=== PATIENT | male | born 1950 | race Two or more races ===

== ENCOUNTER 2017-09-23 14:09 | Outpatient (RCR) | payer MEDICARE, OTHER | END 2017-10-23 | disposition home or self-care (01) | LOC: WCC 14:09 | DX: M86.172 Other acute osteomyelitis, left ankle and foot (principal); E11.43 Type 2 diabetes mellitus with diabetic autonomic (poly)neuropathy; E11.51 Type 2 diabetes mellitus with diabetic peripheral angiopathy without gangrene; E11.621 Type 2 diabetes mellitus with foot ulcer; N18.6 End stage renal disease; I12.0 Hypertensive chronic kidney disease with stage 5 chronic kidney disease or end stage renal disease; E11.22 Type 2 diabetes mellitus with diabetic chronic kidney disease; Z86.73 Personal history of transient ischemic attack (TIA), and cerebral infarction without residual deficits; Z89.411 Acquired absence of right great toe | CPT/HCPCS: 15275; Q4132; Q4133 ==

== ENCOUNTER 2017-11-25 13:44 | Outpatient (RCR) | payer MEDICARE, OTHER | END 2017-12-23 | disposition home or self-care (01) | LOC: WCC 13:44 | DX: M86.172 Other acute osteomyelitis, left ankle and foot (principal); E11.43 Type 2 diabetes mellitus with diabetic autonomic (poly)neuropathy; E11.51 Type 2 diabetes mellitus with diabetic peripheral angiopathy without gangrene; E11.621 Type 2 diabetes mellitus with foot ulcer; N18.6 End stage renal disease; L03.116 Cellulitis of left lower limb; Z89.411 Acquired absence of right great toe; I10 Essential (primary) hypertension; Z86.73 Personal history of transient ischemic attack (TIA), and cerebral infarction without residual deficits | CPT/HCPCS: G0463 ==

== ENCOUNTER 2017-12-30 12:45 | Outpatient (RCR) | payer MEDICARE, OTHER | END 2018-01-23 | disposition home or self-care (01) | LOC: WCC 12:45 | DX: M86.172 Other acute osteomyelitis, left ankle and foot (principal); E11.43 Type 2 diabetes mellitus with diabetic autonomic (poly)neuropathy; E11.51 Type 2 diabetes mellitus with diabetic peripheral angiopathy without gangrene; E11.621 Type 2 diabetes mellitus with foot ulcer; N18.6 End stage renal disease; L03.116 Cellulitis of left lower limb; L97.526 Non-pressure chronic ulcer of other part of left foot with bone involvement without evidence of necrosis; E11.42 Type 2 diabetes mellitus with diabetic polyneuropathy; E11.622 Type 2 diabetes mellitus with other skin ulcer; I70.245 Atherosclerosis of native arteries of left leg with ulceration of other part of foot; Z89.412 Acquired absence of left great toe; Z89.411 Acquired absence of right great toe; I10 Essential (primary) hypertension; Z86.73 Personal history of transient ischemic attack (TIA), and cerebral infarction without residual deficits; E11.22 Type 2 diabetes mellitus with diabetic chronic kidney disease; I12.0 Hypertensive chronic kidney disease with stage 5 chronic kidney disease or end stage renal disease | CPT/HCPCS: 11043; 97605; G0463 ==

== ENCOUNTER 2018-01-27 13:30 | Outpatient (RCR) | payer MEDICARE, OTHER ==
[2018-02-14] MEDS ORDERED: ASPIRIN EC81 MG ORAL (11:46)
[2018-02-14] MEDS ORDERED: HEPARIN SO5000 UNIT2 SUBQ (11:46)
[2018-02-14] MEDS ORDERED: Vanco pharmacy to dose MISC (11:46)
[2018-02-14] MEDS ORDERED: LOPRESSOR25 M1 ORAL (11:46)
[2018-02-14] MEDS ORDERED: D50w IV (11:46)
[2018-02-14] MEDS ORDERED: NORVASC5 MG ORAL (11:46)
[2018-02-14] MEDS ORDERED: NOVOLOG100 UNITS1 SUBQ (11:46)
[2018-02-14] MEDS ORDERED: MIRALAX17 GM ORAL (11:46)
[2018-02-14] MEDS ORDERED: ACETAMINOPHEN325 M1 ORAL (11:46)
[2018-02-14] MEDS ORDERED: DUONEB 0.5-3(2.53 ML HHN (11:46)
== END 2018-02-22 | disposition still patient (30) ==
LOC: WCC 13:30
DX: M86.172 Other acute osteomyelitis, left ankle and foot (principal); E11.43 Type 2 diabetes mellitus with diabetic autonomic (poly)neuropathy; E11.51 Type 2 diabetes mellitus with diabetic peripheral angiopathy without gangrene; E11.621 Type 2 diabetes mellitus with foot ulcer; N18.6 End stage renal disease; L03.116 Cellulitis of left lower limb; I12.0 Hypertensive chronic kidney disease with stage 5 chronic kidney disease or end stage renal disease; E11.22 Type 2 diabetes mellitus with diabetic chronic kidney disease; Z86.73 Personal history of transient ischemic attack (TIA), and cerebral infarction without residual deficits; Z89.412 Acquired absence of left great toe; Z89.411 Acquired absence of right great toe
CPT/HCPCS: 11043; 97605

== ENCOUNTER 2018-02-10 11:42 | Outpatient (CLI) | payer MEDICARE, OTHER ==
--- NOTE | 2018-02-10 16:22 | Diagnostic Imaging Report ---
Indication: History of great toe amputation with open wound Technique: Sagittal, axial, and coronal T1 fast spin echo and fast spin echo STIR images of the forefoot Comparison: none Findings: Patient is status post amputation of the first toe at the level of the metatarsophalangeal joint. There is a open wound and possible exposure of the first metatarsal head as no soft tissue is seen covering the first metatarsal head. There is markedly increased STIR signal and markedly decreased T1 signal involving the first metatarsal head and distal shaft. There is absence of the cortical signal void, suggesting cortical destruction Markedly abnormal STIR and T1 signal is also seen in the second proximal phalanx. Abnormal STIR and very subtle decreased T1 signal is seen in the second metatarsal head. The middle and distal phalanges appear unremarkable. Abnormal STIR signal is seen at the very tip of the head of the third proximal phalanx. There is probably abnormal decreased T1 signal in the same area. The middle and distal phalanges appear The third metatarsal head demonstrates some increased STIR signal, subtle decreased T1 signal. No abnormal marrow signal is seen in the fourth or fifth digits. The visualized bones of the midfoot appear unremarkable. Considerable soft tissue edema is seen in the area of the open wound at the level of the amputation. There is also diffuse edema of the musculotendinous compartments on the plantar side and of the subcutaneous fat and musculotendinous compartments on the dorsum of the foot. No definite focal drainable fluid collection demonstrated. Impression: Abnormal STIR and T1 signal involving the head and neck of the first metatarsal, consistent with osteomyelitis. There is no overlying soft tissue open wound and it is quite likely at the bone is exposed Abnormal STIR and T1 signal within the second proximal phalanx and second metatarsal head, suspicious for osteomyelitis Small focus of abnormal STIR and T1 signal in the head of the third proximal phalanx suspicious for a small focus of osteomyelitis. Equivocal signal abnormality in the third metatarsal head, could be reactive or indicate early osteomyelitis changes Extensive soft tissue edema, described. This could be vasculogenic or indicate soft tissue cellulitis. No focal drainable abscess collection demonstrated. Findings discussed by phone with Dr. Cornejo at the time of interpretation
== END 2018-02-10 13:42 | disposition home or self-care (01) ==
LOC: RAD 11:42
DX: M86.8X7 Other osteomyelitis, ankle and foot (principal)

== ENCOUNTER 2018-02-11 13:47 | Inpatient (IN) | payer MEDICARE, OTHER ==
[~2018-02-11] VITALS: Ht 167.6 cm; Wt 65.3 kg
[2018-02-11 14:39] LABS: BASOPHILS % (AUTO) 0.7 % (0.0-2.0); EOSINOPHILS % (AUTO) 2.2 % (0.0-3.0); HEMATOCRIT 33.5 % (42.0-52.0); HEMOGLOBIN 10.9 G/DL (14.2-18.0); MEAN CORPUSCULAR VOLUME 85 FL (80-99); MONOCYTES % (AUTO) 6.6 % (1.0-10.0); NEUTROPHILS % (AUTO) 74.4 % (45.0-75.0); PLATELET COUNT 193 K/UL (150-450); RED BLOOD COUNT 3.96 M/UL (4.70-6.10); RED CELL DISTRIBUTION WIDTH 16.7 % (11.6-14.8); WHITE BLOOD COUNT 9.1 K/UL (4.8-10.8)
[2018-02-11 14:57] VITALS: BP 110/58
[2018-02-11 15:00] LABS: ANION GAP 5 mmol/L (5-15); BLOOD UREA NITROGEN 34 mg/dL (7-18); CALCIUM 8.8 MG/DL (8.5-10.1); CARBON DIOXIDE 34 MMOL/L (21-32); CHLORIDE 97 MMOL/L (98-107); CREATININE 3.2 MG/DL (0.55-1.30); POTASSIUM 3.6 MMOL/L (3.5-5.1); SODIUM 136 MMOL/L (136-145)
[2018-02-11] MEDS ORDERED: Albuterol/Ipratropium 3ml neb HHN PRN (15:00)
[2018-02-11] MEDS ORDERED: Morphine Sulfate 2mg/ml Inj IVP PRN (15:00)
--- NOTE | 2018-02-11 15:00 | History and Physical ---
History of Present Illness General Date patient seen: Feb 11, 2018 Reason for Hospitalization: Lower Extremity Injury Present Illness HPI 67-year-old male with hx of ESRF, DM, Chronic osteomyelitis presented to ED for evaluation of left foot infection. Referred from wound care clinic here at [facility] [place] He had this wound for several months now. Denies any fevers or chills. There is a wound VAC on the left foot. No other aggravating relieving factors. Denies any other associated symptoms Allergies: Coded Allergies: No Known Allergies (Unverified , 02/11/18) Patient History Healthcare decision maker Resuscitation status Advanced Directive on File Past Medical/Surgical History Past Medical/Surgical History: (1) ESRD (end stage renal disease) (2) Non-healing ulcer of left foot Review of Systems All Other Systems: negative except mentioned in HPI Physical Exam General Appearance: WD/WN Lines, tubes and drains: peripheral HEENT: atraumatic Neck: non-tender, abnormal alignment Respiratory/Chest: chest wall non-tender, lungs clear Cardiovascular/Chest: normal peripheral pulses, normal rate, regularly irregular Last 24 Hour Vital Signs Date Time Temp Pulse Resp B/P (MAP) Pulse Ox O2 Delivery O2 Flow Rate FiO2 02/11/18 14:57 98.2 86 22 110/58 94 Room Air 98.2 02/11/18 13:57 98.3 95 22 138/66 94 Room Air 98.2 Laboratory Tests Test 02/11/18 14:25 White Blood Count 9.1 K/UL (4.8-10.8) Red Blood Count 3.96 M/UL (4.70-6.10) L Hemoglobin 10.9 G/DL (14.2-18.0) L Hematocrit 33.5 % (42.0-52.0) L Mean Corpuscular Volume 85 FL (80-99) Mean Corpuscular Hemoglobin 27.6 PG (27.0-31.0) Mean Corpuscular Hemoglobin Concent 32.6 G/DL (32.0-36.0) Red Cell Distribution Width 16.7 % (11.6-14.8) H Platelet Count 193 K/UL (150-450) Mean Platelet Volume 6.6 FL (6.5-10.1) Neutrophils (%) (Auto) 74.4 % (45.0-75.0) Lymphocytes (%) (Auto) 16.0 % (20.0-45.0) L Monocytes (%) (Auto) 6.6 % (1.0-10.0) Eosinophils (%) (Auto) 2.2 % (0.0-3.0) Basophils (%) (Auto) 0.7 % (0.0-2.0) Sodium Level Pending Potassium Level Pending Chloride Level Pending Carbon Dioxide Level Pending Blood Urea Nitrogen Pending Creatinine Pending Estimat Glomerular Filtration Rate Pending Glucose Level Pending Lactic Acid Level Pending Calcium Level Pending Total Bilirubin Pending Aspartate Amino Transf (AST/SGOT) Pending Alanine Aminotransferase (ALT/SGPT) Pending Alkaline Phosphatase Pending Total Protein Pending Albumin Pending Globulin Pending Height (Feet): 5 Height (Inches): 7.00 Weight (Pounds): 120 Assessment/Plan Problem List: (1) Cellulitis ICD Codes: L03.90 - Cellulitis, unspecified SNOMED: 341569123 (2) Osteomyelitis ICD Codes: M86.9 - Osteomyelitis, unspecified SNOMED: [id number] Qualifiers: Qualified Codes: M86.9 - Osteomyelitis, unspecified (3) ESRD (end stage renal disease) ICD Codes: N18.6 - End stage renal disease SNOMED: 09577426 (4) Non-healing ulcer of left foot ICD Codes: L97.529 - Non-pressure chronic ulcer of other part of left foot with unspecified severity SNOMED: 731569628 Qualifiers: Qualified Codes: L97.529 - Non-pressure chronic ulcer of other part of left foot with unspecified severity Assessment/Plan wound care IV abx check cultures sliding scale diabetic diet Melissa Hector MD Feb 11, 2018 15:00
--- NOTE | 2018-02-11 15:00 | Diagnostic Imaging Report ---
Indication: Chest pain Technique: One view of the chest Comparison: none Findings: Lungs and pleural spaces are clear. Heart size is normal Impression: No acute process
[2018-02-11 15:03] LABS: ALANINE AMINOTRANSFERASE 58 U/L (12-78); ALBUMIN 2.7 G/DL (3.4-5.0); ALBUMIN/GLOBULIN RATIO 0.5 (1.0-2.7); ALKALINE PHOSPHATASE 117 U/L (46-116); ASPARTATE AMINO TRANSFERASE 41 U/L (15-37); BILIRUBIN,TOTAL 0.5 MG/DL (0.2-1.0)
--- NOTE | 2018-02-11 15:15 | Emergency Room Report ---
History of Present Illness General Chief Complaint: Lower Extremity Injury Source: Patient Present Illness HPI 67-year-old male presents ED for evaluation of left foot infection. Referred from [place] care clinic [place] [facility] [place]ound care clinic states that patient is being treated for osteomyelitis and a wound on his left foot which is not healing. Has had this wound for several months now. Currently being managed by Dr. Cornejo (podiatry). Patient denies any pain. Denies any fevers or chills. There is a wound VAC on the left foot. No other aggravating relieving factors. Denies any other associated symptoms Allergies: Coded Allergies: No Known Allergies (Unverified , 02/11/18) Patient History Past Medical History: DM, HTN, renal disease, dialysis Past Surgical History: none Pertinent Family History: none Social History: Denies: smoking, alcohol use, drug use Immunizations: UTD Reviewed Nursing Documentation: PMH: Agreed; PSxH: Agreed Nursing Documentation-PMH Past Medical History: No Stated History Hx Hypertension: Yes Hx Diabetes: Yes Hx Dialysis: Yes - MWF Review of Systems All Other Systems: negative except mentioned in HPI Physical Exam Vital Signs Date Time Temp Pulse Resp B/P (MAP) Pulse Ox O2 Delivery O2 Flow Rate FiO2 02/11/18 13:57 98.3 95 22 138/66 94 Room Air 98.2 Sp02 EP Interpretation: reviewed, normal General Appearance: no apparent distress, alert, GCS 15, non-toxic Head: normocephalic, atraumatic Eyes: bilateral eye normal inspection, bilateral eye PERRL ENT: hearing grossly normal, normal pharynx, no angioedema, normal voice Neck: full range of motion, supple/symm/no masses Respiratory: chest non-tender, lungs clear, normal breath sounds, speaking full sentences Cardiovascular #1: regular rate, rhythm, no edema Cardiovascular #2: 2+ carotid (R), 2+ carotid (L), 2+ radial (R), 2+ radial (L) , 2+ dorsalis pedis (R), 2+ dorsalis pedis (L) Gastrointestinal: normal bowel sounds, non tender, soft, non-distended, no guarding, no rebound Rectal: deferred Genitourinary: normal inspection, no CVA tenderness Musculoskeletal: back normal, gait/station normal, normal range of motion, non- tender Neurologic: alert, oriented x3, responsive, motor strength/tone normal, sensory intact, speech normal Psychiatric: judgement/insight normal, memory normal, mood/affect normal, no suicidal/homicidal ideation Reflexes: 3+ bicep (R), 3+ bicep (L), 3+ tricep (R), 3+ tricep (L), 3+ knee (R) , 3+ knee (L) Skin: normal color, warm/dry, well hydrated, other - wound to dorsum L foot. wound vac in place Lymphatic: no adenopathy Medical Decision Making Diagnostic Impression: Primary Impression: ESRD (end stage renal disease) Additional Impressions: Osteomyelitis Qualified Codes: M86.9 - Osteomyelitis, unspecified Non-healing ulcer of left foot Qualified Codes: L97.529 - Non-pressure chronic ulcer of other part of left foot with unspecified severity ER Course Hospital Course 67-year-old male presents to ED with nonhealing ulcer to L foot. h/o osteomyelitis Differential diagnoses include: Cellulitis, DVT, abscess, rash. Clinical course Patient placed on stretcher. After initial history and physical I ordered labs , blood Cx, UA, IVFs, EKG, CXR labs reviewed - no leukocytosis, Hb/Hct stable, BUN/Cr elevated, UA+ bacteria, lactate ok EKG - NSR, no acute ischemic changes interpreted by me CXR - no acute process antibiotics given. Dr Cornejo will take patient to OR tomorrow Case discussed with Dr Hector and he agreed to accept the patient to his service for further care and support Diagnosis - ESRD, osteomyelitis, nonhealing ulcer of left foot Patient admitted to floor in stable condition Labs Test 02/11/18 14:25 02/11/18 15:45 White Blood Count 9.1 K/UL (4.8-10.8) Red Blood Count 3.96 M/UL (4.70-6.10) Hemoglobin 10.9 G/DL (14.2-18.0) Hematocrit 33.5 % (42.0-52.0) Mean Corpuscular Volume 85 FL (80-99) Mean Corpuscular Hemoglobin 27.6 PG (27.0-31.0) Mean Corpuscular Hemoglobin Concent 32.6 G/DL (32.0-36.0) Red Cell Distribution Width 16.7 % (11.6-14.8) Platelet Count 193 K/UL (150-450) Mean Platelet Volume 6.6 FL (6.5-10.1) Neutrophils (%) (Auto) 74.4 % (45.0-75.0) Lymphocytes (%) (Auto) 16.0 % (20.0-45.0) Monocytes (%) (Auto) 6.6 % (1.0-10.0) Eosinophils (%) (Auto) 2.2 % (0.0-3.0) Basophils (%) (Auto) 0.7 % (0.0-2.0) Sodium Level 136 MMOL/L (136-145) Potassium Level 3.6 MMOL/L (3.5-5.1) Chloride Level 97 MMOL/L (98-107) Carbon Dioxide Level 34 MMOL/L (21-32) Anion Gap 5 mmol/L (5-15) Blood Urea Nitrogen 34 mg/dL (7-18) Creatinine 3.2 MG/DL (0.55-1.30) Estimat Glomerular Filtration Rate 19.5 mL/min (>60) Glucose Level 286 MG/DL (74-106) Lactic Acid Level 1.70 mmol/L (0.4-2.0) Calcium Level 8.8 MG/DL (8.5-10.1) Total Bilirubin 0.5 MG/DL (0.2-1.0) Aspartate Amino Transf (AST/SGOT) 41 U/L (15-37) Alanine Aminotransferase (ALT/SGPT) 58 U/L (12-78) Alkaline Phosphatase 117 U/L (46-116) Total Protein 7.8 G/DL (6.4-8.2) Albumin 2.7 G/DL (3.4-5.0) Globulin 5.1 g/dL Albumin/Globulin Ratio 0.5 (1.0-2.7) Urine Color Yellow Urine Appearance Slightly cloudy Urine pH 7 (4.5-8.0) Urine Specific [place] 1.010 (1.005-1.035) Urine Protein 4+ (NEGATIVE) Urine Glucose (UA) 3+ (NEGATIVE) Urine Ketones Negative (NEGATIVE) Urine Blood 1+ (NEGATIVE) Urine Nitrite Negative (NEGATIVE) Urine Bilirubin Negative (NEGATIVE) Urine Urobilinogen Normal MG/DL (0.0-1.0) Urine Leukocyte Esterase 1+ (NEGATIVE) EKG Diagnostic Results Rate: normal Rhythm: NSR ST Segments: no acute changes ASA given to the pt in ED: No Rhythm Strip Diag. Results EP Interpretation: yes Rhythm: NSR, no PVC's, no ectopy Chest X-Ray Diagnostic Results Chest X-Ray Diagnostic Results : Chest X-Ray Ordered: Yes # of Views/Limited/Complete: 1 View Indication: Other - preop EP Interpretation: Yes Interpretation: no consolidation, no effusion, no pneumothorax, no acute cardiopulmonary disease Impression: No acute disease Electronically Signed by: Electronically signed by Dennis Mcdermott MD Last Vital Signs Date Time Temp Pulse Resp B/P (MAP) Pulse Ox O2 Delivery O2 Flow Rate FiO2 02/11/18 14:57 98.2 86 22 110/58 94 Room Air 98.2 Status: improved Disposition: ADMITTED INPATIENT Condition: Serious Referrals: Melissa Hector MD (PCP) Dennis Mcdermott MD Feb 11, 2018 15:15
[2018-02-11] MEDS ORDERED: Vancomycin 1 GM in NS 275 ML IV ONE (15:30)
[2018-02-11 15:52] LABS: APPEARANCE,URINE SLIGHTLY CLOUDY; BILIRUBIN, URINE NEGATIVE (NEGATIVE); GLUCOSE, URINE (UA) 3+ (NEGATIVE); KETONES,URINE NEGATIVE (NEGATIVE); LEUKOCYTE ESTERASE ,URINE 1+ (NEGATIVE); NITRITE,URINE NEGATIVE (NEGATIVE); PH,URINE 7 (4.5-8.0); PROTEIN,URINE 4+ (NEGATIVE); UROBILINOGEN,URINE NORMAL MG/DL (0.0-1.0)
[2018-02-11 15:54] LABS: COLOR,URINE YELLOW
--- NOTE | 2018-02-11 16:10 | Consultation ---
Consult Note Consult Note asked to eval for dialysis karissa 67-year-old male presents ED for evaluation of left foot infection. Referred from wound care clinic here at [facility] [place] Wound care clinic states that patient is being treated for osteomyelitis and a wound on his left foot which is not healing. Has had this wound for several months now. Currently being managed by Dr. Cornejo (podiatry). Patient denies any pain. Denies any fevers or chills. There is a wound VAC on the left foot. No other aggravating relieving factors. Denies any other associated symptoms Allergies: Coded Allergies: No Known Allergies (Unverified , 02/11/18) Past Medical History: DM, HTN, renal disease, dialysis Hx Hypertension: Yes Hx Diabetes: Yes Hx Dialysis: Yes - MWF seen in ER room 8 Had dialysis today Assessment/Plan ESRD (end stage renal disease) Osteomyelitis Non-healing ulcer of left foot Anemia Plan: WOund care- ID & SUrgical eval next HD 02/13 per orders Sanjeev Gray MD Feb 11, 2018 16:10
[2018-02-11 17:02] VITALS: BP 156/82
[2018-02-11] MEDS ORDERED: NovoLOG Insulin Flexpen SUBQ SCH (18:00)
[2018-02-11 18:56] VITALS: BP 163/84
[2018-02-11] MEDS: Heparin 5000 units/ml inj SUBQ SCH (20:41)
[2018-02-11] MEDS: NovoLOG Insulin Flexpen SUBQ SCH (20:50)
[2018-02-11] MEDS ORDERED: Zolpidem 5mg tab ORAL PRN (21:00)
[2018-02-11] MEDS ORDERED: Miralax 17gm pkt ORAL PRN (21:00)
--- NOTE | 2018-02-11 23:31 | Consultation ---
History of Present Illness General Date patient seen: Feb 11, 2018 Time patient seen: 23:24 Chief Complaint: Lower Extremity Injury Present Illness HPI 67 year old male [place] speaking with DM, ESRD, HTN, anemia presents with left big toe ulcer that has a wound vac. He was sent from wound clinic because the ulcer is not healing. He has osteomyelitis. He is planning on having resection on . Cardiology consulted for clearance. No chest pain/SOB/Edema/ orthopnea/fevers/recent illnesses/palpitations. No previous UT/PE/DVT/CVA. Chest x ray clear. BP elevated. Allergies: Coded Allergies: No Known Allergies (Unverified , 02/11/18) Patient History Healthcare decision maker N Resuscitation status Full Code Advanced Directive on File Review of Systems Constitutional: Reports: no symptoms Eye: Reports: no symptoms ENT: Reports: no symptoms Respiratory: Reports: no symptoms Cardiovascular: Reports: no symptoms Gastrointestinal: Reports: no symptoms Genitourinary: Reports: no symptoms Musculoskeletal: Reports: no symptoms Skin: Reports: no symptoms Psychiatric: Reports: no symptoms Endocrine: Reports: no symptoms Hematologic/Lymphatic: Reports: no symptoms Physical Exam General Appearance: no apparent distress, alert Lines, tubes and drains: peripheral HEENT: normocephalic, atraumatic Neck: non-tender, normal alignment Respiratory/Chest: chest wall non-tender, normal breath sounds, no respiratory distress Cardiovascular/Chest: normal peripheral pulses, normal rate Abdomen: normal bowel sounds, non tender Extremities: normal range of motion, non-tender, normal inspection Skin Exam: normal pigmentation, warm/dry Neurologic: application integrator II-XII grossly normal, no motor/sensory deficits Last 24 Hour Vital Signs Date Time Temp Pulse Resp B/P (MAP) Pulse Ox O2 Delivery O2 Flow Rate FiO2 02/11/18 19:01 163/84 02/11/18 18:56 98.2 89 21 163/84 (110) 96 98.2 02/11/18 18:52 Room Air 02/11/18 18:10 98.2 87 22 156/82 95 Room Air 98.2 02/11/18 17:02 98.2 87 22 156/82 95 Room Air 98.2 02/11/18 14:57 98.2 86 22 110/58 94 Room Air 98.2 02/11/18 13:57 98.3 95 22 138/66 94 Room Air 98.2 Laboratory Tests Test 02/11/18 14:25 02/11/18 15:45 White Blood Count 9.1 K/UL (4.8-10.8) Red Blood Count 3.96 M/UL (4.70-6.10) L Hemoglobin 10.9 G/DL (14.2-18.0) L Hematocrit 33.5 % (42.0-52.0) L Mean Corpuscular Volume 85 FL (80-99) Mean Corpuscular Hemoglobin 27.6 PG (27.0-31.0) Mean Corpuscular Hemoglobin Concent 32.6 G/DL (32.0-36.0) Red Cell Distribution Width 16.7 % (11.6-14.8) H Platelet Count 193 K/UL (150-450) Mean Platelet Volume 6.6 FL (6.5-10.1) Neutrophils (%) (Auto) 74.4 % (45.0-75.0) Lymphocytes (%) (Auto) 16.0 % (20.0-45.0) L Monocytes (%) (Auto) 6.6 % (1.0-10.0) Eosinophils (%) (Auto) 2.2 % (0.0-3.0) Basophils (%) (Auto) 0.7 % (0.0-2.0) Sodium Level 136 MMOL/L (136-145) Potassium Level 3.6 MMOL/L (3.5-5.1) Chloride Level 97 MMOL/L (98-107) L Carbon Dioxide Level 34 MMOL/L (21-32) H Anion Gap 5 mmol/L (5-15) Blood Urea Nitrogen 34 mg/dL (7-18) H Creatinine 3.2 MG/DL (0.55-1.30) H Estimat Glomerular Filtration Rate 19.5 mL/min (>60) Glucose Level 286 MG/DL (74-106) H Lactic Acid Level 1.70 mmol/L (0.4-2.0) Calcium Level 8.8 MG/DL (8.5-10.1) Total Bilirubin 0.5 MG/DL (0.2-1.0) Aspartate Amino Transf (AST/SGOT) 41 U/L (15-37) H Alanine Aminotransferase (ALT/SGPT) 58 U/L (12-78) Alkaline Phosphatase 117 U/L (46-116) H C-Reactive Protein, Quantitative 6.2 mg/dL (0.00-0.90) H Total Protein 7.8 G/DL (6.4-8.2) Albumin 2.7 G/DL (3.4-5.0) L Globulin 5.1 g/dL Albumin/Globulin Ratio 0.5 (1.0-2.7) L Urine Color Yellow Urine Appearance Slightly cloudy Urine pH 7 (4.5-8.0) Urine Specific [place] 1.010 (1.005-1.035) Urine Protein 4+ (NEGATIVE) H Urine Glucose (UA) 3+ (NEGATIVE) H Urine Ketones Negative (NEGATIVE) Urine Blood 1+ (NEGATIVE) H Urine Nitrite Negative (NEGATIVE) Urine Bilirubin Negative (NEGATIVE) Urine Urobilinogen Normal MG/DL (0.0-1.0) Urine Leukocyte Esterase 1+ (NEGATIVE) H Urine RBC 0-2 /HPF (0 - 0) H Urine WBC 2-4 /HPF (0 - 0) Urine Squamous Epithelial Cells Occasional /LPF Urine Amorphous Sediment Few /LPF (NONE) H Urine Bacteria Few /HPF (NONE) Height (Feet): 5 Height (Inches): 7.00 Weight (Pounds): 144 Medications Current Medications Medications (Trade) Dose Ordered Sig/Live Route PRN Reason Start Time Stop Time Status Last Admin Dose Admin Acetaminophen (Tylenol) 650 mg Q4H PRN ORAL T>100.5 02/11/18 15:00 03/13/18 14:59 Albuterol/ Ipratropium (Albuterol/ Ipratropium) 3 ml Q6H PRN HHN dyspnea 02/11/18 15:00 02/16/18 14:59 Clonidine HCl (Catapres Tab) 0.1 mg Q4H PRN ORAL SBP > 160mmHg 02/11/18 15:00 03/13/18 14:59 02/11/18 19:01 Dextrose (Dextrose 50%) 25 ml PRN IV Hypoglycemia 02/11/18 15:15 03/13/18 15:14 Dextrose (Dextrose 50%) 50 ml PRN IV hypoglycemia 02/11/18 15:15 03/13/18 15:14 Heparin Sodium (Porcine) (Heparin 5000 units/ml) 5,000 units EVERY 12 HOURS SUBQ 9/19/18 21:00 03/13/18 20:59 02/11/18 20:41 Insulin Aspart (NovoLOG) BEFORE MEALS AND HS SUBQ 02/11/18 21:00 03/13/18 20:59 02/11/18 20:50 Morphine Sulfate (Morphine Sulfate) 1 mg Q4H PRN IVP PAIN 4-10 02/11/18 15:00 02/18/18 14:59 Ondansetron HCl (Zofran) 4 mg Q6H PRN IVP Nausea & Vomiting 02/11/18 15:00 03/13/18 14:59 Polyethylene Glycol (Miralax) 17 gm HSPRN PRN ORAL Constipation 02/11/18 21:00 03/13/18 20:59 Zolpidem Tartrate (Ambien) 5 mg HSPRN PRN ORAL Insomnia 02/11/18 21:00 02/18/18 20:59 Assessment/Plan Status: stable, progressing Assessment/Plan Assessment 1) Diabetes 2) ESRD 3) Anemia chronic disease 4) Hypertension 5) Osteomyelitis Plan BP control - Norvasc 5 mg Maintain dialysis ID to treat UTI and Osteo with Abx Surgery consult for resection Patient will need outpatient stress test due to diabetes/HTN risk factors Surgery is low risk, patient can proceed prior to any further risk stratification May transfer to Gilberto Nguyen MD Feb 11, 2018 23:31
[2018-02-12] VITALS (14 sets, daily range): BP systolic 129–176; BP diastolic 61–90
[2018-02-12] MEDS: NovoLOG Insulin Flexpen SUBQ SCH ×4 (06:11→21:31)
[2018-02-12 06:21] LABS: BASOPHILS % (AUTO) 0.6 % (0.0-2.0); EOSINOPHILS % (AUTO) 4.5 % (0.0-3.0); HEMATOCRIT 30.3 % (42.0-52.0); LYMPHOCYTES % (AUTO) 22.4 % (20.0-45.0); MEAN CORPUSCULAR VOLUME 85 FL (80-99); MONOCYTES % (AUTO) 6.9 % (1.0-10.0); NEUTROPHILS % (AUTO) 65.7 % (45.0-75.0); PLATELET COUNT 201 K/UL (150-450); RED BLOOD COUNT 3.58 M/UL (4.70-6.10); RED CELL DISTRIBUTION WIDTH 16.6 % (11.6-14.8); WHITE BLOOD COUNT 9.9 K/UL (4.8-10.8)
[2018-02-12 06:52] LABS: ALANINE AMINOTRANSFERASE 50 U/L (12-78); ALBUMIN 2.5 G/DL (3.4-5.0); ALBUMIN/GLOBULIN RATIO 0.5 (1.0-2.7); ALKALINE PHOSPHATASE 102 U/L (46-116); ANION GAP 7 mmol/L (5-15); ASPARTATE AMINO TRANSFERASE 31 U/L (15-37); BILIRUBIN,TOTAL 0.4 MG/DL (0.2-1.0); BLOOD UREA NITROGEN 48 mg/dL (7-18); CALCIUM 8.7 MG/DL (8.5-10.1); CARBON DIOXIDE 30 MMOL/L (21-32); CHLORIDE 101 MMOL/L (98-107); CHOLESTEROL 108 MG/DL (< 200); CREATININE 4.1 MG/DL (0.55-1.30); HDL CHOLESTEROL 31 MG/DL (40-60); POTASSIUM 3.6 MMOL/L (3.5-5.1); SODIUM 138 MMOL/L (136-145); TRIGLYCERIDES 108 MG/DL (30-150)
[2018-02-12 06:56] LABS: PHOSPHORUS 3.6 MG/DL (2.5-4.9)
--- NOTE | 2018-02-12 07:53 | Nephrology Progress Note ---
Assessment/Plan Plan Lt. Great toe bed osteo - IV Abx. Get ID consult. For Podiatry surgery today. Pt. refusing to go to [facility]. ESRD - HD MWF. Aspiration precautions!!! patient with h/o aspiration. AODM - under control. s/p TAVR!! Cardiology to advise. s/p CVA x 5!! Subjective Subjective No new c/o. Case discussed @ length with Dr. 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 Cornejo.. Objective Objective Last 24 Hour Vital Signs Date Time Temp Pulse Resp B/P (MAP) Pulse Ox O2 Delivery O2 Flow Rate FiO2 02/12/18 07:33 Room Air 02/12/18 04:00 97.5 84 19 160/88 (112) 96 97.5 02/12/18 00:00 97.2 87 20 138/80 (99) 98 97.2 02/11/18 21:00 Room Air 02/11/18 19:01 163/84 02/11/18 18:56 98.2 89 21 163/84 (110) 96 98.2 02/11/18 18:52 Room Air 02/11/18 18:10 98.2 87 22 156/82 95 Room Air 98.2 02/11/18 17:02 98.2 87 22 156/82 95 Room Air 98.2 02/11/18 14:57 98.2 86 22 110/58 94 Room Air 98.2 02/11/18 13:57 98.3 95 22 138/66 94 Room Air 98.2 Intake and Output 02/11/18 02/12/18 19:00 07:00 Output Total 500 ml Balance -500 ml Output Urine Total 500 ml # Voids 1 Laboratory Tests 02/11/18 14:25: White Blood Count 9.1, Red Blood Count 3.96L, Hemoglobin 10.9L, Hematocrit 33.5L , Mean Corpuscular Volume 85, Mean Corpuscular Hemoglobin 27.6, Mean Corpuscular Hemoglobin Concent 32.6, Red Cell Distribution Width 16.7H, Platelet Count 193, Mean Platelet Volume 6.6, Neutrophils (%) (Auto) 74.4, Lymphocytes (%) (Auto) 16.0L, Monocytes (%) (Auto) 6.6, Eosinophils (%) (Auto) 2.2, Basophils (%) (Auto) 0.7, Sodium Level 136, Potassium Level 3.6, Chloride Level 97L, Carbon Dioxide Level 34H, Anion Gap 5, Blood Urea Nitrogen 34H, Creatinine 3.2H, Estimat Glomerular Filtration Rate 19.5, Glucose Level 286H, Lactic Acid Level 1.70, Calcium Level 8.8, Total Bilirubin 0.5, Aspartate Amino Transf (AST/SGOT) 41H, Alanine Aminotransferase (ALT/SGPT) 58, Alkaline Phosphatase 117H, C-Reactive Protein, Quantitative 6.2H, Total Protein 7.8, Albumin 2.7L, Globulin 5.1, Albumin/Globulin Ratio 0.5L 02/11/18 15:45: Urine Color Yellow, Urine Appearance Slightly cloudy, Urine pH 7, Urine Specific [place] 1.010, Urine Protein 4+H, Urine Glucose (UA) 3+H, Urine Ketones Negative, Urine Blood 1+H, Urine Nitrite Negative, Urine Bilirubin Negative, Urine Urobilinogen Normal, Urine Leukocyte Esterase 1+H, Urine RBC 0- 2H, Urine WBC 2-4, Urine Squamous Epithelial Cells Occasional, Urine Amorphous Sediment FewH, Urine Bacteria Few 02/12/18 04:00: Sodium Level 138, Potassium Level 3.6, Chloride Level 101, Carbon Dioxide Level 30, Anion Gap 7, Blood Urea Nitrogen 48H, Creatinine 4.1H, Estimat Glomerular Filtration Rate 14.6, Glucose Level 118#H, Calcium Level 8.7, Total Bilirubin 0.4, Aspartate Amino Transf (AST/SGOT) 31, Alanine Aminotransferase (ALT/SGPT) 50, Alkaline Phosphatase 102, Total Protein 7.4, Albumin 2.5L, Globulin 4.9, Albumin/Globulin Ratio 0.5L, Hemoglobin A1c 8.7H, Uric Acid [Pending], Phosphorus Level [Pending], Magnesium Level [Pending], Iron Level [Pending], Unsaturated Iron Binding [Pending], Ferritin [Pending], Troponin I [Pending], Pro-B-Type Natriuretic Peptide [Pending], Triglycerides Level 108, Cholesterol Level 108, LDL Cholesterol 56, HDL Cholesterol 31L, Cholesterol/HDL Ratio 3.5, Vitamin B12 Level [Pending], Folate [Pending], Thyroid Stimulating Hormone (TSH ) 1.457 02/12/18 04:30: White Blood Count 9.9, Red Blood Count 3.58L, Hemoglobin 10.0L, Hematocrit 30.3L , Mean Corpuscular Volume 85, Mean Corpuscular Hemoglobin 27.8, Mean Corpuscular Hemoglobin Concent 32.8, Red Cell Distribution Width 16.6H, Platelet Count 201, Mean Platelet Volume 7.0, Neutrophils (%) (Auto) 65.7, Lymphocytes (%) (Auto) 22.4, Monocytes (%) (Auto) 6.9, Eosinophils (%) (Auto) 4.5H, Basophils (%) (Auto) 0.6 Height (Feet): 5 Height (Inches): 7.00 Weight (Pounds): 144 Objective Cachectic. Cv RR Lungs CTA Abd SNT. BS + E No CCE. Lt. great toe gangrene + amputated + wound Vac. ANGEL MCCORD. Arline Dominguez MD Feb 12, 2018 07:53
[2018-02-12] MEDS ORDERED: Heparin Sod 1000 units/ml 10ml IV PRN (08:00)
[2018-02-12] MEDS: Heparin 5000 units/ml inj SUBQ SCH ×2 (08:25→21:19)
[2018-02-12 08:49] LABS: IRON 55 ug/dL (50-175); TOTAL IRON BINDING CAPACITY 143 ug/dL (250-450)
[2018-02-12 08:55] LABS: % IRON SATURATION 38 % (15-50)
--- NOTE | 2018-02-12 09:31 | Consultation ---
History of Present Illness General Date patient seen: Feb 12, 2018 Chief Complaint: Lower Extremity Injury Reason for Consultation: Left foot infeciton Present Illness HPI Mr. Lay is a 67 yo male with PMHx of DM and ESRD on HD who presented to the ED on 02/11/18 with presented with a left foot wound that has not been healing. He reports that he has been followed by a wound clinic and podiatry and is being treated for OM. Unfortunately the wound has not been healing after about 6 months of Tx. He has a wound vac. He reports no f/c, N/V/D or abdominal pain. He says that he has been getting antibiotics with HD for at least one week. The patient may go to the OR this morning. ID consulted for treatment of OM. PMHx/PSHx DM HTN, End stage renal disease (On HD) right great toe amp SocHx: No E/T/D FamHx DM- Mom-Dad Allergies: Coded Allergies: No Known Allergies (Unverified , 02/11/18) Patient History Healthcare decision maker N Resuscitation status Full Code Advanced Directive on File Review of Systems All Other Systems: negative except mentioned in HPI Physical Exam Last 24 Hour Vital Signs Date Time Temp Pulse Resp B/P (MAP) Pulse Ox O2 Delivery O2 Flow Rate FiO2 02/12/18 08:23 82 170/78 02/12/18 08:23 170/78 02/12/18 08:00 97.5 82 20 170/78 (108) 95 97.5 02/12/18 07:33 Room Air 02/12/18 04:00 97.5 84 19 160/88 (112) 96 97.5 02/12/18 00:00 97.2 87 20 138/80 (99) 98 97.2 02/11/18 21:00 Room Air 02/11/18 19:01 163/84 02/11/18 18:56 98.2 89 21 163/84 (110) 96 98.2 02/11/18 18:52 Room Air 02/11/18 18:10 98.2 87 22 156/82 95 Room Air 98.2 02/11/18 17:02 98.2 87 22 156/82 95 Room Air 98.2 02/11/18 14:57 98.2 86 22 110/58 94 Room Air 98.2 02/11/18 13:57 98.3 95 22 138/66 94 Room Air 98.2 Intake and Output 02/11/18 02/12/18 19:00 07:00 Output Total 500 ml Balance -500 ml Output Urine Total 500 ml # Voids 1 Laboratory Tests Test 02/11/18 14:25 02/11/18 15:45 02/12/18 04:00 02/12/18 04:30 White Blood Count 9.1 K/UL (4.8-10.8) 9.9 K/UL (4.8-10.8) Red Blood Count 3.96 M/UL (4.70-6.10) L 3.58 M/UL (4.70-6.10) L Hemoglobin 10.9 G/DL (14.2-18.0) L 10.0 G/DL (14.2-18.0) L Hematocrit 33.5 % (42.0-52.0) L 30.3 % (42.0-52.0) L Mean Corpuscular Volume 85 FL (80-99) 85 FL (80-99) Mean Corpuscular Hemoglobin 27.6 PG (27.0-31.0) 27.8 PG (27.0-31.0) Mean Corpuscular Hemoglobin Concent 32.6 G/DL (32.0-36.0) 32.8 G/DL (32.0-36.0) Red Cell Distribution Width 16.7 % (11.6-14.8) H 16.6 % (11.6-14.8) H Platelet Count 193 K/UL (150-450) 201 K/UL (150-450) Mean Platelet Volume 6.6 FL (6.5-10.1) 7.0 FL (6.5-10.1) Neutrophils (%) (Auto) 74.4 % (45.0-75.0) 65.7 % (45.0-75.0) Lymphocytes (%) (Auto) 16.0 % (20.0-45.0) L 22.4 % (20.0-45.0) Monocytes (%) (Auto) 6.6 % (1.0-10.0) 6.9 % (1.0-10.0) Eosinophils (%) (Auto) 2.2 % (0.0-3.0) 4.5 % (0.0-3.0) H Basophils (%) (Auto) 0.7 % (0.0-2.0) 0.6 % (0.0-2.0) Sodium Level 136 MMOL/L (136-145) 138 MMOL/L (136-145) Potassium Level 3.6 MMOL/L (3.5-5.1) 3.6 MMOL/L (3.5-5.1) Chloride Level 97 MMOL/L (98-107) L 101 MMOL/L (98-107) Carbon Dioxide Level 34 MMOL/L (21-32) H 30 MMOL/L (21-32) Anion Gap 5 mmol/L (5-15) 7 mmol/L (5-15) Blood Urea Nitrogen 34 mg/dL (7-18) H 48 mg/dL (7-18) H Creatinine 3.2 MG/DL (0.55-1.30) H 4.1 MG/DL (0.55-1.30) H Estimat Glomerular Filtration Rate 19.5 mL/min (>60) 14.6 mL/min (>60) Glucose Level 286 MG/DL (74-106) H 118 MG/DL (74-106) #H Lactic Acid Level 1.70 mmol/L (0.4-2.0) Calcium Level 8.8 MG/DL (8.5-10.1) 8.7 MG/DL (8.5-10.1) Total Bilirubin 0.5 MG/DL (0.2-1.0) 0.4 MG/DL (0.2-1.0) Aspartate Amino Transf (AST/SGOT) 41 U/L (15-37) H 31 U/L (15-37) Alanine Aminotransferase (ALT/SGPT) 58 U/L (12-78) 50 U/L (12-78) Alkaline Phosphatase 117 U/L (46-116) H 102 U/L (46-116) C-Reactive Protein, Quantitative 6.2 mg/dL (0.00-0.90) H Total Protein 7.8 G/DL (6.4-8.2) 7.4 G/DL (6.4-8.2) Albumin 2.7 G/DL (3.4-5.0) L 2.5 G/DL (3.4-5.0) L Globulin 5.1 g/dL 4.9 g/dL Albumin/Globulin Ratio 0.5 (1.0-2.7) L 0.5 (1.0-2.7) L Urine Color Yellow Urine Appearance Slightly cloudy Urine pH 7 (4.5-8.0) Urine Specific [place] 1.010 (1.005-1.035) Urine Protein 4+ (NEGATIVE) H Urine Glucose (UA) 3+ (NEGATIVE) H Urine Ketones Negative (NEGATIVE) Urine Blood 1+ (NEGATIVE) H Urine Nitrite Negative (NEGATIVE) Urine Bilirubin Negative (NEGATIVE) Urine Urobilinogen Normal MG/DL (0.0-1.0) Urine Leukocyte Esterase 1+ (NEGATIVE) H Urine RBC 0-2 /HPF (0 - 0) H Urine WBC 2-4 /HPF (0 - 0) Urine Squamous Epithelial Cells Occasional /LPF Urine Amorphous Sediment Few /LPF (NONE) H Urine Bacteria Few /HPF (NONE) Hemoglobin A1c 8.7 % (4.3-6.0) H Uric Acid 4.2 MG/DL (2.6-7.2) Phosphorus Level 3.6 MG/DL (2.5-4.9) Magnesium Level 2.0 MG/DL (1.8-2.4) Iron Level 55 ug/dL (50-175) Total Iron Binding Capacity 143 ug/dL (250-450) L Percent Iron Saturation 38 % (15-50) Unsaturated Iron Binding 88 ug/dL (112-346) L Ferritin 373 NG/ML (8-388) Troponin I 0.023 ng/mL (0.000-0.056) Pro-B-Type Natriuretic Peptide 4430 pg/mL (0-125) H Triglycerides Level 108 MG/DL (30-150) Cholesterol Level 108 MG/DL (< 200) LDL Cholesterol 56 mg/dL (<100) HDL Cholesterol 31 MG/DL (40-60) L Cholesterol/HDL Ratio 3.5 (3.3-4.4) Vitamin B12 Level 1122 PG/ML (193-986) H Folate 25.1 NG/ML (8.6-58.9) Thyroid Stimulating Hormone (TSH) 1.457 uiU/mL (0.358-3.740) Height (Feet): 5 Height (Inches): 7.00 Weight (Pounds): 144 Medications Current Medications Medications (Trade) Dose Ordered Sig/Live Route PRN Reason Start Time Stop Time Status Last Admin Dose Admin Acetaminophen (Tylenol) 650 mg Q4H PRN ORAL T>100.5 02/11/18 15:00 03/13/18 14:59 Albuterol/ Ipratropium (Albuterol/ Ipratropium) 3 ml Q6H PRN HHN dyspnea 02/11/18 15:00 02/16/18 14:59 Amlodipine Besylate (Norvasc) 5 mg DAILY ORAL 02/12/18 09:00 03/14/18 08:59 02/12/18 08:23 Clonidine HCl (Catapres Tab) 0.1 mg Q4H PRN ORAL SBP > 160mmHg 02/11/18 15:00 03/13/18 14:59 02/12/18 08:23 Dextrose (Dextrose 50%) 25 ml PRN IV Hypoglycemia 02/11/18 15:15 03/13/18 15:14 Dextrose (Dextrose 50%) 50 ml PRN IV hypoglycemia 02/11/18 15:15 03/13/18 15:14 Heparin Sodium (Porcine) (Heparin 5000 units/ml) 5,000 units EVERY 12 HOURS SUBQ 02/11/18 21:00 03/13/18 20:59 02/12/18 08:25 Heparin Sodium (Porcine) (Heparin Sod 1000 units/ml 10ml) 2,000 unit ONCE PRN IV FOR HD USE ONLY 02/12/18 08:00 02/14/18 23:59 Insulin Aspart (NovoLOG) BEFORE MEALS AND HS SUBQ 02/11/18 21:00 03/13/18 20:59 02/12/18 06:11 Morphine Sulfate (Morphine Sulfate) 1 mg Q4H PRN IVP PAIN 4-10 02/11/18 15:00 02/18/18 14:59 Ondansetron HCl (Zofran) 4 mg Q6H PRN IVP Nausea & Vomiting 02/11/18 15:00 03/13/18 14:59 Polyethylene Glycol (Miralax) 17 gm HSPRN PRN ORAL Constipation 02/11/18 21:00 03/13/18 20:59 Sodium Chloride 1,000 ml @ 500 mls/hr Q2H PRN IVLG sbp<90 during hd 02/12/18 08:00 02/14/18 23:59 Zolpidem Tartrate (Ambien) 5 mg HSPRN PRN ORAL Insomnia 02/11/18 21:00 02/18/18 20:59 Objective Narrative Gen: NAD, well appearing, alert HEENT: NCAT, MMM, EOMI, PERRL, No Oral lesion, no scleral icterus NECK: full range of motion, supple, no meningismus, No LAD, No JVD LUNGS: CTAB, No W/C, No Accessory muscle use CARDS: RRR, S1, S2, No M/R/G ABD: Soft, NT, ND, No R/G, + BS, No HSM, No Masses : Deferred Ext: C/C/E, Pulses 1+ B/L (DP, Rad), Left foot with clean ulcer of great toe. No Purulence or cellulitis, Right foot with amp of great toe NEURO: A/O x 4, Strength and Sensation Grossly intact PSYCH: mood/affect normal SKIN: warm/dry, No rashes Assessment/Plan Assessment/Plan 67 yo male with PMHx of DM and ESRD on HD who presented to the ED on 02/11/18 with presented with a left foot wound that has not been healing. Left great toe infection Reported OM in the past Going for surgery today On Vancomycin No active sepsis DM HTN, End stage renal disease (On HD) Plan: - Continue Vancomycin #1 - f/u Surgery results and Cx - Monitor CBC and Temps Thank you for this consult. We will continue to follow the patient during this hospitalization. Gilberto Valverde MD Feb 12, 2018 09:31
[2018-02-12] MEDS: Metoprolol 25mg tab ORAL SCH ×2 (11:01→21:20)
[2018-02-12] MEDS ORDERED: Sterile Water Irrig 1000ml IRRIG ONE (14:00)
[2018-02-12] MEDS ORDERED: NS Irrig 1000ml ONE (14:00)
[2018-02-12] MEDS ORDERED: Propofol 200mg/20ml IV ONE (14:00)
[2018-02-12] MEDS ORDERED: Lidocaine 1% Plain 30 ml INJ ONE ×2 (14:30→15:04)
[2018-02-12] MEDS ORDERED: Midazolam 2mg/2ml Inj ONE (14:32)
[2018-02-12] MEDS ORDERED: LR 1000ml 1,000 ML IVLG SCH (14:35)
--- NOTE | 2018-02-12 14:40 | Anethesia Preoperative Eval ---
Anesthesia Pre-op PMH/ROS General Date of Evaluation: Feb 12, 2018 Time of Evaluation: 14:15 Anesthesiologist: Gurwinder ASA Score: ASA 4 - Emergency Mallampati Score Class I : Soft palate, uvula, fauces, pillars visible Class II: Soft palate, uvula, fauces visible Class III: Soft palate, base of uvula visible Class IV: Only hard plate visible Mallampati Classification: Class II Surgeon: Clemente Diagnosis: L Foot Osteomyelitis Surgical Procedure: I and D L Foot Anesthesia History: none Family History: no anesthesia problems Allergies: Coded Allergies: No Known Allergies (Unverified , 02/11/18) Medications: see eMAR Past Medical History Cardiovascular: Reports: HTN Gastrointestinal/Genitourinary: Reports: ESRD - Dialysis Neurologic/Psychiatric: Reports: CVA Endocrine: Reports: DM Hematology/Immune: Reports: anemia PSxH Narrative: L Arm AV Fistula Anesthesia Pre-op Phys. Exam Physician Exam Last Vital Signs Date Time Temp Pulse Resp B/P (MAP) Pulse Ox O2 Delivery O2 Flow Rate FiO2 02/12/18 11:58 98.3 82 20 146/90 (108) 95 98.3 02/12/18 07:33 Room Air Constitutional: NAD Neurologic: CN 2-12 intact Cardiovascular: RRR Respiratory: CTA Airway Exam Mallampati Score: Class II MO: limited ROM: limited Teeth: intact Anesthesia Pre-op A/P Labs Hematology Test 02/12/18 04:30 White Blood Count 9.9 K/UL (4.8-10.8) Red Blood Count 3.58 M/UL (4.70-6.10) L Hemoglobin 10.0 G/DL (14.2-18.0) L Hematocrit 30.3 % (42.0-52.0) L Mean Corpuscular Volume 85 FL (80-99) Mean Corpuscular Hemoglobin 27.8 PG (27.0-31.0) Mean Corpuscular Hemoglobin Concent 32.8 G/DL (32.0-36.0) Red Cell Distribution Width 16.6 % (11.6-14.8) H Platelet Count 201 K/UL (150-450) Mean Platelet Volume 7.0 FL (6.5-10.1) Neutrophils (%) (Auto) 65.7 % (45.0-75.0) Lymphocytes (%) (Auto) 22.4 % (20.0-45.0) Monocytes (%) (Auto) 6.9 % (1.0-10.0) Eosinophils (%) (Auto) 4.5 % (0.0-3.0) H Basophils (%) (Auto) 0.6 % (0.0-2.0) Chemistry Test 02/12/18 04:00 Sodium Level 138 MMOL/L (136-145) Potassium Level 3.6 MMOL/L (3.5-5.1) Chloride Level 101 MMOL/L (98-107) Carbon Dioxide Level 30 MMOL/L (21-32) Anion Gap 7 mmol/L (5-15) Blood Urea Nitrogen 48 mg/dL (7-18) H Creatinine 4.1 MG/DL (0.55-1.30) H Estimat Glomerular Filtration Rate 14.6 mL/min (>60) Glucose Level 118 MG/DL (74-106) #H Hemoglobin A1c 8.7 % (4.3-6.0) H Uric Acid 4.2 MG/DL (2.6-7.2) Calcium Level 8.7 MG/DL (8.5-10.1) Phosphorus Level 3.6 MG/DL (2.5-4.9) Magnesium Level 2.0 MG/DL (1.8-2.4) Iron Level 55 ug/dL (50-175) Total Iron Binding Capacity 143 ug/dL (250-450) L Percent Iron Saturation 38 % (15-50) Unsaturated Iron Binding 88 ug/dL (112-346) L Ferritin 373 NG/ML (8-388) Total Bilirubin 0.4 MG/DL (0.2-1.0) Aspartate Amino Transf (AST/SGOT) 31 U/L (15-37) Alanine Aminotransferase (ALT/SGPT) 50 U/L (12-78) Alkaline Phosphatase 102 U/L (46-116) Troponin I 0.023 ng/mL (0.000-0.056) Pro-B-Type Natriuretic Peptide 4430 pg/mL (0-125) H Total Protein 7.4 G/DL (6.4-8.2) Albumin 2.5 G/DL (3.4-5.0) L Globulin 4.9 g/dL Albumin/Globulin Ratio 0.5 (1.0-2.7) L Triglycerides Level 108 MG/DL (30-150) Cholesterol Level 108 MG/DL (< 200) LDL Cholesterol 56 mg/dL (<100) HDL Cholesterol 31 MG/DL (40-60) L Cholesterol/HDL Ratio 3.5 (3.3-4.4) Vitamin B12 Level 1122 PG/ML (193-986) H Folate 25.1 NG/ML (8.6-58.9) Thyroid Stimulating Hormone (TSH) 1.457 uiU/mL (0.358-3.740) Risk Assessment & Plan Assessment: ASA 4E Plan: GA Status Change Before Surgery: Marquis Winters MD Feb 12, 2018 14:40
--- NOTE | 2018-02-12 14:41 | Immediate Post-Op Evaluation ---
Immediate Post-Op Evalulation Immediate Post-Op Evalulation Procedure: I and D L Foot Date of Evaluation: Feb 12, 2018 Time of Evaluation: 16:02 IV Fluids: 100 Blood Products: 0 Estimated Blood Loss: 20 Urinary Output: 0 Blood Pressure Systolic: 176 Blood Pressure Diastolic: 72 Pulse Rate: 71 Respiratory Rate: 16 O2 Sat by Pulse Oximetry: 100 Temperature (Fahrenheit): 97.2 Pain Score (1-10): 1 Nausea: No Vomiting: No Complications 0 Patient Status: awake, reacts, patent, none Hydration Status: adequate Marquis Purdy MD Feb 12, 2018 14:41
[2018-02-12] MEDS ORDERED: Atropine Sulfate 0.4mg/ml inj IVP PRN (14:45)
[2018-02-12] MEDS ORDERED: LORazepam Inj 2mg/ml 1ml IV PRN (14:45)
[2018-02-12] MEDS ORDERED: Midazolam 2mg/2ml Inj IVP PRN (14:45)
[2018-02-12] MEDS ORDERED: Metoclopramide 10mg/2ml Inj IVP PRN (14:45)
[2018-02-12] MEDS ORDERED: Norco 5mg/325mg tab ORAL PRN (14:45)
[2018-02-12] MEDS ORDERED: fentaNYL 100 mcg/2 mL IV PRN (14:45)
[2018-02-12] MEDS ORDERED: HYDROcodone/Acetamin 7.5/325 tab ORAL PRN (14:45)
[2018-02-12] MEDS ORDERED: DiphenhydrAMINE 50mg/ml Inj IVP PRN (14:45)
[2018-02-12] MEDS ORDERED: oxyCODONE HCL/Acetaminophen 5/325mg ORAL PRN (14:45)
[2018-02-12] MEDS ORDERED: Meperidine 50mg/ml Inj(FOR RIGORS ONLY) IVP PRN (14:45)
[2018-02-12] MEDS ORDERED: Hydromorphone 0.5mg/0.5ml inj IVP PRN (14:45)
--- NOTE | 2018-02-12 15:01 | Pre-Procedure Note/Attestation ---
Pre-Procedure Note/Attestation Complete Prior to Procedure Planned Procedure: left Procedure Narrative: L 1st met head resection with I & D , bone biopsy and possible tertiary skin closure. Indications for Procedure Pre-Operative Diagnosis: L 1st metatarsal Osteomyelitis Attestation I attest that I discussed the nature of the procedure; its benefits; risks and complications; and alternatives (and the risks and benefits of such alternatives ), prior to the procedure, with the patient (or the patient's legal retail sales representative). I attest that, if there was a reasonable possibility of needing a blood transfusion, the patient (or the patient's legal retail sales representative) was given the [facility] standardized written summary, pursuant to the [place] Blood Safety Act ([place] Health and Safety Code # 1645, as amended). I attest that I re-evaluated the patient just prior to the surgery and that there has been no change in the patient's H&P, except as documented below: Gilberto Cornejo DPM Feb 12, 2018 15:01
[2018-02-12] MEDS ORDERED: Bupivacaine 0.5% Inj 30 ml vial INJ ONE (15:04)
[2018-02-12] MEDS ORDERED: NeoSporin Gu Irrig 1ml Amp IRRIG ONE (15:04)
[2018-02-12] MEDS ORDERED: Bacitracin 50000 Units Vial IRRIG ONE (15:04)
--- NOTE | 2018-02-12 16:22 | Podiatric Progress Note ---
Assessment/Plan Patient Byron Johns is a 67 year old male who was admitted on Feb 11, 2018 at 14:28 with Problems: (1) Non-healing ulcer of left foot (2) ESRD (end stage renal disease) (3) Cellulitis (4) Osteomyelitis Assessment/Plan Patient to the OR for L 1st met head resection with bone biopsy and I & D. The wound will be assess for possible tertiary closure. Consent has been signed by the patient and medical clearance has been given by PCP. Subjective ROS Limited/Unobtainable: Yes Day of Surgery: 02/12/18 Reason for consult L foot infection Procedure Performed patient to the OR for L 1st met head resection and I & D with bone biopsy. Allergies: Coded Allergies: No Known Allergies (Unverified , 02/11/18) Subjective Patient is seen for infected l foot. Patient was seen at the clinic s/p L hallux toe amputation. Patient was diagnosed with clinical osteo. patient was sent for an MRI which was positive for multiple bone infection including destruction of the distal L 1st metatarsal head. Patient was sent to the OR and was admitted for IV abx and local wound care. Patient is scheduled today for surgery. Objective Exam Last 24 Hour Vital Signs Date Time Temp Pulse Resp B/P (MAP) Pulse Ox O2 Delivery O2 Flow Rate FiO2 02/12/18 15:49 207.0 71 16 100 02/12/18 11:58 98.3 82 20 146/90 (108) 95 98.3 02/12/18 11:01 82 158/67 02/12/18 09:00 82 20 158/67 (97) 95 02/12/18 08:23 82 170/78 02/12/18 08:23 170/78 02/12/18 08:00 97.5 82 20 170/78 (108) 95 97.5 02/12/18 07:33 Room Air 02/12/18 04:00 97.5 84 19 160/88 (112) 96 97.5 02/12/18 00:00 97.2 87 20 138/80 (99) 98 97.2 02/11/18 21:00 Room Air 02/11/18 19:01 163/84 02/11/18 18:56 98.2 89 21 163/84 (110) 96 98.2 02/11/18 18:52 Room Air 02/11/18 18:10 98.2 87 22 156/82 95 Room Air 98.2 02/11/18 17:02 98.2 87 22 156/82 95 Room Air 98.2 Laboratory Tests Test 02/12/18 04:00 02/12/18 04:30 Sodium Level 138 MMOL/L (136-145) Potassium Level 3.6 MMOL/L (3.5-5.1) Chloride Level 101 MMOL/L (98-107) Carbon Dioxide Level 30 MMOL/L (21-32) Anion Gap 7 mmol/L (5-15) Blood Urea Nitrogen 48 mg/dL (7-18) H Creatinine 4.1 MG/DL (0.55-1.30) H Estimat Glomerular Filtration Rate 14.6 mL/min (>60) Glucose Level 118 MG/DL (74-106) #H Hemoglobin A1c 8.7 % (4.3-6.0) H Uric Acid 4.2 MG/DL (2.6-7.2) Calcium Level 8.7 MG/DL (8.5-10.1) Phosphorus Level 3.6 MG/DL (2.5-4.9) Magnesium Level 2.0 MG/DL (1.8-2.4) Iron Level 55 ug/dL (50-175) Total Iron Binding Capacity 143 ug/dL (250-450) L Percent Iron Saturation 38 % (15-50) Unsaturated Iron Binding 88 ug/dL (112-346) L Ferritin 373 NG/ML (8-388) Total Bilirubin 0.4 MG/DL (0.2-1.0) Aspartate Amino Transf (AST/SGOT) 31 U/L (15-37) Alanine Aminotransferase (ALT/SGPT) 50 U/L (12-78) Alkaline Phosphatase 102 U/L (46-116) Troponin I 0.023 ng/mL (0.000-0.056) Pro-B-Type Natriuretic Peptide 4430 pg/mL (0-125) H Total Protein 7.4 G/DL (6.4-8.2) Albumin 2.5 G/DL (3.4-5.0) L Globulin 4.9 g/dL Albumin/Globulin Ratio 0.5 (1.0-2.7) L Triglycerides Level 108 MG/DL (30-150) Cholesterol Level 108 MG/DL (< 200) LDL Cholesterol 56 mg/dL (<100) HDL Cholesterol 31 MG/DL (40-60) L Cholesterol/HDL Ratio 3.5 (3.3-4.4) Vitamin B12 Level 1122 PG/ML (193-986) H Folate 25.1 NG/ML (8.6-58.9) Thyroid Stimulating Hormone (TSH) 1.457 uiU/mL (0.358-3.740) White Blood Count 9.9 K/UL (4.8-10.8) Red Blood Count 3.58 M/UL (4.70-6.10) L Hemoglobin 10.0 G/DL (14.2-18.0) L Hematocrit 30.3 % (42.0-52.0) L Mean Corpuscular Volume 85 FL (80-99) Mean Corpuscular Hemoglobin 27.8 PG (27.0-31.0) Mean Corpuscular Hemoglobin Concent 32.8 G/DL (32.0-36.0) Red Cell Distribution Width 16.6 % (11.6-14.8) H Platelet Count 201 K/UL (150-450) Mean Platelet Volume 7.0 FL (6.5-10.1) Neutrophils (%) (Auto) 65.7 % (45.0-75.0) Lymphocytes (%) (Auto) 22.4 % (20.0-45.0) Monocytes (%) (Auto) 6.9 % (1.0-10.0) Eosinophils (%) (Auto) 4.5 % (0.0-3.0) H Basophils (%) (Auto) 0.6 % (0.0-2.0) General Appearance: alert Musculoskeletal Muscle strength grading: grade 4 - muscle strength of Assistive devices: crutches Vascular Pulses: 0 dorsalis pedis (R), 0 dorsalis pedis (L), 0 posterior tibial (R), 0 posterior tibial (L) Edema: 1+ (<2mm) foot (L) Visible vascular abnormality: varicose veins Temperature: within normal limits Neurological Light touch: decreased sensation bilat Dermatological Dermatological Narrative patient with wound to the l 1st mpj stump s/p hallux amp. positive smell noted. no drainage or discharge. No pus. metatarsal head noted to be eroded and soft with palpation. fibrotic tissue noted to the lateral aspect of the wound. mild periwound edema and cellulitis noted. Gilberto Cornejo DPM Feb 12, 2018 16:22
--- NOTE | 2018-02-12 18:32 | Cardiology Progress Note ---
Subjective Subjective [id number] Objective Last 24 Hour Vital Signs Date Time Temp Pulse Resp B/P (MAP) Pulse Ox O2 Delivery O2 Flow Rate FiO2 02/12/18 17:30 98.0 18 142/69 (93) 99 98.0 02/12/18 16:45 97.9 20 148/79 (102) 99 97.9 02/12/18 16:33 98.0 71 18 144/81 100 Nasal Cannula 3 98.0 02/12/18 16:20 69 19 139/81 100 Nasal Cannula 3 02/12/18 16:10 70 17 140/76 100 Nasal Cannula 3 02/12/18 16:00 74 16 129/61 100 Simple Mask 6 02/12/18 15:55 71 24 158/68 100 Simple Mask 6 02/12/18 15:51 97.2 70 16 176/72 100 Simple Mask 6 97.2 02/12/18 15:49 207.0 71 16 100 02/12/18 11:58 98.3 82 20 146/90 (108) 95 98.3 02/12/18 11:01 82 158/67 02/12/18 09:00 82 20 158/67 (97) 95 02/12/18 08:23 82 170/78 02/12/18 08:23 170/78 02/12/18 08:00 97.5 82 20 170/78 (108) 95 97.5 02/12/18 07:33 Room Air 02/12/18 04:00 97.5 84 19 160/88 (112) 96 97.5 02/12/18 00:00 97.2 87 20 138/80 (99) 98 97.2 02/11/18 21:00 Room Air 02/11/18 19:01 163/84 02/11/18 18:56 98.2 89 21 163/84 (110) 96 98.2 02/11/18 18:52 Room Air Intake and Output 02/11/18 02/12/18 19:00 07:00 Output Total 500 ml Balance -500 ml Output Urine Total 500 ml # Voids 1 Laboratory Tests Test 02/12/18 04:00 02/12/18 04:30 Sodium Level 138 MMOL/L (136-145) Potassium Level 3.6 MMOL/L (3.5-5.1) Chloride Level 101 MMOL/L (98-107) Carbon Dioxide Level 30 MMOL/L (21-32) Anion Gap 7 mmol/L (5-15) Blood Urea Nitrogen 48 mg/dL (7-18) H Creatinine 4.1 MG/DL (0.55-1.30) H Estimat Glomerular Filtration Rate 14.6 mL/min (>60) Glucose Level 118 MG/DL (74-106) #H Hemoglobin A1c 8.7 % (4.3-6.0) H Uric Acid 4.2 MG/DL (2.6-7.2) Calcium Level 8.7 MG/DL (8.5-10.1) Phosphorus Level 3.6 MG/DL (2.5-4.9) Magnesium Level 2.0 MG/DL (1.8-2.4) Iron Level 55 ug/dL (50-175) Total Iron Binding Capacity 143 ug/dL (250-450) L Percent Iron Saturation 38 % (15-50) Unsaturated Iron Binding 88 ug/dL (112-346) L Ferritin 373 NG/ML (8-388) Total Bilirubin 0.4 MG/DL (0.2-1.0) Aspartate Amino Transf (AST/SGOT) 31 U/L (15-37) Alanine Aminotransferase (ALT/SGPT) 50 U/L (12-78) Alkaline Phosphatase 102 U/L (46-116) Troponin I 0.023 ng/mL (0.000-0.056) Pro-B-Type Natriuretic Peptide 4430 pg/mL (0-125) H Total Protein 7.4 G/DL (6.4-8.2) Albumin 2.5 G/DL (3.4-5.0) L Globulin 4.9 g/dL Albumin/Globulin Ratio 0.5 (1.0-2.7) L Triglycerides Level 108 MG/DL (30-150) Cholesterol Level 108 MG/DL (< 200) LDL Cholesterol 56 mg/dL (<100) HDL Cholesterol 31 MG/DL (40-60) L Cholesterol/HDL Ratio 3.5 (3.3-4.4) Vitamin B12 Level 1122 PG/ML (193-986) H Folate 25.1 NG/ML (8.6-58.9) Thyroid Stimulating Hormone (TSH) 1.457 uiU/mL (0.358-3.740) White Blood Count 9.9 K/UL (4.8-10.8) Red Blood Count 3.58 M/UL (4.70-6.10) L Hemoglobin 10.0 G/DL (14.2-18.0) L Hematocrit 30.3 % (42.0-52.0) L Mean Corpuscular Volume 85 FL (80-99) Mean Corpuscular Hemoglobin 27.8 PG (27.0-31.0) Mean Corpuscular Hemoglobin Concent 32.8 G/DL (32.0-36.0) Red Cell Distribution Width 16.6 % (11.6-14.8) H Platelet Count 201 K/UL (150-450) Mean Platelet Volume 7.0 FL (6.5-10.1) Neutrophils (%) (Auto) 65.7 % (45.0-75.0) Lymphocytes (%) (Auto) 22.4 % (20.0-45.0) Monocytes (%) (Auto) 6.9 % (1.0-10.0) Eosinophils (%) (Auto) 4.5 % (0.0-3.0) H Basophils (%) (Auto) 0.6 % (0.0-2.0) Latisha Lane MD Feb 12, 2018 18:32
[2018-02-12] MEDS: Aspirin EC 81mg tab ORAL SCH (18:42)
--- NOTE | 2018-02-12 19:30 | Consultation ---
DATE OF CONSULTATION: 02/12/2018 CONSULTING PHYSICIAN: Arline Dominguez M.D. REASON FOR CONSULTATION: Infection for the left foot. HISTORY OF PRESENT ILLNESS: This is a 67-year-old diabetic patient with end-stage renal disease, who is admitted to [facility] with infection to his left foot. The patient is well known to our services and was seen at [facility] on Friday where a clinical osteomyelitis of his left first metatarsal head was diagnosed and was sent for an MRI. MRI came back positive for osteomyelitis of multiple bones in his foot including bone destruction and erosion to the first metatarsal head. The patient is status post left first hallux amputation, which dehisced and has been followed for wound care. The patient was told that he is going to need a surgical procedure for resection of the metatarsal head and he decided to come to [facility] ER for evaluation and treatment. The patient was admitted with infection to the left foot and osteomyelitis of the metatarsal bone on IV antibiotic vancomycin and being followed by Dr. Dominguez. The patient is afebrile and white count is noted to be within normal limits. PAST MEDICAL HISTORY: Per Dr. Dominguez. PODIATRY EXAMINATION: VASCULAR: Dorsalis pedis and posterior tibial artery are noted to be nonpalpable. Capillary refilling time is decreased to 5 seconds. The patient is noted to have ischemic changes at the tip of the lateral wound site consistent with ischemic arterial circulation. NEUROLOGIC: Decreased sensation is noted. Vibratory, sensation proprioception, and protected threshold. Some areas of the wound, the patient is sensate and feels pain mostly on the medial plantar aspect of the wound. DERMATOLOGIC: Left foot stump on the first metatarsophalangeal joint status post hallux amputation. There is no drainage or discharge. There is foul smell. There is evi-wound edema, erythema, and cellulitis. There is no pus that can be appreciated. There is some tenderness with palpation. There is probing to bone about 1 cm proximal to the metatarsal. The metatarsal head is observed at the base of the wound with erosion to the cartilage of the metatarsal head. There is slight undermining. The wound was observed carefully and there is no pus pocket that can be appreciated. ASSESSMENT AND PLAN: This is a diabetic patient with end-stage renal disease and cardiovascular pathology, who has wound to the left foot. The patient is scheduled to the OR for resection of left first metatarsal head. He is also scheduled for bone biopsy, I and D, and possible surgery closure of the wound. The patient is cleared by Dr. Dominguez. Gilberto Cornejo D.P.M DR: JR JOB#: [id number] CC: SARAH
--- NOTE | 2018-02-12 22:45 | Operative Note - Dictated ---
DATE OF OPERATION: 02/12/2018 PREOPERATIVE DIAGNOSES: 1. Osteomyelitis to the left first metatarsal head. 2. Infection to the left first metatarsophalangeal joint stump. POSTOPERATIVE DIAGNOSES: 1. Osteomyelitis to the left first metatarsal head. 2. Infection to the left first metatarsophalangeal joint stump. OPERATIONS: 1. Resection of left first metatarsal head. 2. Bone biopsy. 3. Incision and drainage. 4. Possible tertiary closure. SURGEON: Gilberto Cornejo D.P.M. ANESTHESIA: MAC with local. HEMOSTASIS: Pneumatic ankle tourniquet was not used. ESTIMATED BLOOD LOSS: 50 mL. PROCEDURE IN DETAIL: Under mild sedation, the patient was brought into the operating room table and placed on the operating room table in the supine position. The patient was anesthetized by the anesthesiologist. A local injection was given to the proximal aspect of the left medial foot. A 9 cc of 1:1 mixture of 0.5% Marcaine plain and 1% lidocaine plain. The foot was then scrubbed and draped in the usual aseptic manner. After the timeout was called, attention was directed to the left foot. Using a #15 blade, a linear medial dorsal incision was made at 2 cm. The incision was deepened through subcutaneous tissue down to bone. All soft tissue was freed from the metatarsal head medially, superior inferiorly, and laterally thus bringing the metatarsal head into the surgeon's view. Utilizing a sagittal bone saw, a metatarsal head at the neck was resected from medial to lateral. Utilizing forceps and a #15 blade, the metatarsal head was freed of any soft tissue attachment and passed to the back table. At this time, a rongeur was utilized to resect partial of the bone and put in the vial for pathology. Utilizing a culture swab, the wound was then cultured for anaerobic and aerobic, gram positive and negative, and fungal infection. Utilizing a rongeur, all nonviable tissues were resected out of the wound site. All fibrotic tissue was resected out. The skin edges were incised utilizing a #15 blade of nonviable tissue fold area. Then, the wound was assessed and noted to be in satisfied status, status post the I and D. The wound was then flushed with copious amount of normal saline mixed with triple antibiotic. Utilizing a 3-0 Vicryl, the skin edges were reapproximated from medial to lateral leaving 1/3 of the wound open to the lateral aspect of the wound. The wound was packed with new gauze. The wound was then covered with 4 x 4, Kerlix, and Coban. The patient tolerated the procedure and anesthesia well. He was transferred to recovery with vital signs stable and vascular status intact to the left leg. POSTOPERATIVE MONITORING: The patient will be transferred to the floor. Orders were written to keep dressing intact and keep the foot at bed level. The patient to resume all preoperative orders as per Dr. Dominguez. When the patient is stable, he will be discharged home for wound care. Gilberto Cornejo D.P.M DR: JR JOB#: [id number] CC:
--- NOTE | 2018-02-12 23:00 | Consultation ---
DATE OF CONSULTATION: 02/12/2018 CARDIOLOGY CONSULTATION CONSULTING PHYSICIAN: Latisha Lane M.D. REFERRING PHYSICIAN: Arline Parnell M.D. REASON FOR EVALUATION: Evaluation of patient who had cardiac history. History is taken from the patient. He underwent TAVR at [facility] last year. He presented here with osteomyelitis of the left foot. He also is end-stage renal disease, on dialysis and he is diabetic and hypertensive. At present time, he denies any cardiac issues or complaints. PAST SURGICAL HISTORY: Otherwise, negative besides TAVR and also fistula for dialysis. ALLERGIES: Not reported. MEDICATIONS: His current medications include amlodipine, Catapres, DuoNeb, fentanyl, heparin, Tylenol, insulin, lorazepam, metoprolol, and Ambien. HABITS: He denies history of smoking, drinking, or drug abuse. SOCIAL HISTORY: He is partially dependent, lives at home. REVIEW OF SYSTEMS: His review of systems was done in details. He denies any chest pain, palpitations, or recent syncope. PHYSICAL EXAMINATION: GENERAL: This is a chronically ill-appearing gentleman lying in bed, not in acute distress. VITAL SIGNS: Blood pressure 150/70, heart rate is 71, temperature is normal, and oxygen saturation on room air is 99%. HEENT: PERRLA. EOMI. NECK: Supple. There are several scars on his chest. LUNGS: Few crackles at bases only. HEART: Regular with accented A2, systolic ejection murmur 2/6 radiating to right carotid. ABDOMEN: Soft, nontender. No masses. EXTREMITIES: Lower extremities, distal pulses very diminished and the left leg has a dressing on the foot. There is a dialysis fistula in the left forearm. LABORATORY AND DIAGNOSTIC DATA: His chest x-ray was unremarkable. His laboratories revealed anemia, hemoglobin 10, platelets 201. Chemistry, creatinine 4.1, BUN is 48. Iron 143 and iron binding is 88. ProBNP is 4430. Albumin 2.5. Vitamin B12 of 1122. LDL cholesterol is 56. IMPRESSION AND RECOMMENDATION: Post TAVR. I am not sure about his history of coronary artery disease. I need to review his [facility]' records, which I am going to do shortly. I am going to start him on aspirin in addition to his usual medications and I assume that his lower extremity arterial duplex was done recently. Thank you for your consultation. Latisha Lane M.D. DR: MARIE JOB#: [id number] CC:
[2018-02-13] VITALS (7 sets, daily range): BP systolic 150–173; BP diastolic 78–94
[2018-02-13] MEDS: NovoLOG Insulin Flexpen SUBQ SCH ×4 (06:30→21:29)
--- NOTE | 2018-02-13 08:10 | Infectious Diseases Prog Note ---
Assessment/Plan Assessment/Plan 67 yo male with PMHx of DM and ESRD on HD who presented to the ED on 02/11/18 with presented with a left foot wound that has not been healing. Left great toe infection Reported OM in the past 02/12/18 - SP I and D On Vancomycin No active sepsis DM HTN, End stage renal disease (On HD) Plan: - As cultures pending will add empiric Cefepime 2g after HD on dialysis days - for GNR coverage - Abx End date 02-24-18 - Continue Vancomycin #2 - Abx End date 02-24-18 - Abx End date 02-24-18 - If pathology report shows clean margins could consider shorter course of Abx - If D/C cultures will need to be followed up and abx adjusted accordingly - f/u Surgery Path results and Cx - Monitor CBC and Temps We will continue to follow the patient during this hospitalization. Subjective Allergies: Coded Allergies: No Known Allergies (Unverified , 02/11/18) Subjective Patient reports doing well Post Op Aferbile Objective Vital Signs Last 24 Hour Vital Signs Date Time Temp Pulse Resp B/P (MAP) Pulse Ox O2 Delivery O2 Flow Rate FiO2 02/13/18 07:35 Room Air 02/13/18 04:00 98.4 81 18 158/81 (106) 95 98.4 02/13/18 00:00 97.7 79 18 150/85 (106) 98 97.7 02/12/18 21:20 75 140/77 02/12/18 21:00 Room Air 02/12/18 20:35 99 16 Nasal Cannula 2.0 28 02/12/18 20:00 97.0 75 18 140/77 (98) 99 97.0 02/12/18 17:30 98.0 18 142/69 (93) 99 98.0 02/12/18 16:45 97.9 20 148/79 (102) 99 97.9 02/12/18 16:33 98.0 71 18 144/81 100 Nasal Cannula 3 98.0 02/12/18 16:20 69 19 139/81 100 Nasal Cannula 3 02/12/18 16:10 70 17 140/76 100 Nasal Cannula 3 02/12/18 16:00 74 16 129/61 100 Simple Mask 6 02/12/18 15:55 71 24 158/68 100 Simple Mask 6 02/12/18 15:51 97.2 70 16 176/72 100 Simple Mask 6 97.2 02/12/18 15:49 207.0 71 16 100 02/12/18 11:58 98.3 82 20 146/90 (108) 95 98.3 02/12/18 11:01 82 158/67 02/12/18 09:00 82 20 158/67 (97) 95 02/12/18 08:23 82 170/78 02/12/18 08:23 170/78 Height (Feet): 5 Height (Inches): 6.00 Weight (Pounds): 144 Objective Gen: NAD, well appearing, alert HEENT: NCAT, MMM, EOMI, LUNGS: CTAB, No W/C, No Accessory muscle use CARDS: RRR, S1, S2, No M/R/G ABD: Soft, NT, ND, + BS, Ext: C/C/E, Pulses 1+ B/L (DP, Rad), Left foot with clean ulcer S/P I and D, Right foot with amp of great toe NEURO: A/O x 4, Strength and Sensation Grossly intact Microbiology Date/Time Source Procedure Growth Status 02/11/18 14:30 Blood Blood Culture - Preliminary NO GROWTH AFTER 24 HOURS Resulted 02/11/18 14:15 Blood Blood Culture - Preliminary NO GROWTH AFTER 24 HOURS Resulted 02/11/18 15:52 Rectum VRE Culture Pending Resulted 02/11/18 15:52 Rectum - Preliminary Resulted Current Medications Medications (Trade) Dose Ordered Sig/Live Route PRN Reason Start Time Stop Time Status Last Admin Dose Admin Acetaminophen (Tylenol) 650 mg Q4H PRN ORAL T>100.5 02/11/18 15:00 03/13/18 14:59 Albuterol/ Ipratropium (Albuterol/ Ipratropium) 3 ml Q6H PRN HHN dyspnea 02/11/18 15:00 02/16/18 14:59 Amlodipine Besylate (Norvasc) 5 mg DAILY ORAL 02/12/18 09:00 03/14/18 08:59 02/12/18 08:23 Aspirin (Ecotrin) 81 mg DAILY ORAL 02/12/18 18:30 03/14/18 18:29 02/12/18 18:42 Clonidine HCl (Catapres Tab) 0.1 mg Q4H PRN ORAL SBP > 160mmHg 02/11/18 15:00 03/13/18 14:59 02/12/18 08:23 Dextrose (Dextrose 50%) 25 ml PRN IV Hypoglycemia 02/11/18 15:15 03/13/18 15:14 Dextrose (Dextrose 50%) 50 ml PRN IV hypoglycemia 02/11/18 15:15 03/13/18 15:14 Heparin Sodium (Porcine) (Heparin 5000 units/ml) 5,000 units EVERY 12 HOURS SUBQ 02/11/18 21:00 03/13/18 20:59 02/12/18 21:19 Heparin Sodium (Porcine) (Heparin Sod 1000 units/ml 10ml) 2,000 unit ONCE PRN IV FOR HD USE ONLY 02/12/18 08:00 02/14/18 23:59 Insulin Aspart (NovoLOG) BEFORE MEALS AND HS SUBQ 02/11/18 21:00 03/13/18 20:59 02/12/18 21:31 Metoprolol Tartrate (Lopressor) 25 mg Q12HR ORAL 02/12/18 11:00 03/14/18 10:59 02/12/18 21:20 Morphine Sulfate (Morphine Sulfate) 1 mg Q4H PRN IVP PAIN 4-10 02/11/18 15:00 02/18/18 14:59 Ondansetron HCl (Zofran) 4 mg Q6H PRN IVP Nausea & Vomiting 02/11/18 15:00 03/13/18 14:59 Polyethylene Glycol (Miralax) 17 gm HSPRN PRN ORAL Constipation 02/11/18 21:00 03/13/18 20:59 Sodium Chloride 1,000 ml @ 500 mls/hr Q2H PRN IVLG sbp<90 during hd 02/12/18 08:00 02/14/18 23:59 Zolpidem Tartrate (Ambien) 5 mg HSPRN PRN ORAL Insomnia 02/11/18 21:00 02/18/18 20:59 Gilberto Valverde MD Feb 13, 2018 08:10
--- NOTE | 2018-02-13 08:14 | Nephrology Progress Note ---
Assessment/Plan Plan Lt. Great toe bed osteo - IV Abx. Get ID consult. For Podiatry surgery yesterday. ESRD - HD MWF. Aspiration precautions!!! patient with h/o aspiration. AODM - under control. s/p TAVR!! Cardiology following. s/p CVA x 5!! DC planning per Podiatry after HD. Subjective Subjective No new c/o. Case discussed @ length with Dr. Chantel Schaffer pt's PMD and Nurse Midwife/Clinical Instructor and Dr. Cornejo.. Post Lt great toe metarsal amputation. Objective Objective Last 24 Hour Vital Signs Date Time Temp Pulse Resp B/P (MAP) Pulse Ox O2 Delivery O2 Flow Rate FiO2 02/13/18 07:35 Room Air 02/13/18 04:00 98.4 81 18 158/81 (106) 95 98.4 02/13/18 00:00 97.7 79 18 150/85 (106) 98 97.7 02/12/18 21:20 75 140/77 02/12/18 21:00 Room Air 02/12/18 20:35 99 16 Nasal Cannula 2.0 28 02/12/18 20:00 97.0 75 18 140/77 (98) 99 97.0 02/12/18 17:30 98.0 18 142/69 (93) 99 98.0 02/12/18 16:45 97.9 20 148/79 (102) 99 97.9 02/12/18 16:33 98.0 71 18 144/81 100 Nasal Cannula 3 98.0 02/12/18 16:20 69 19 139/81 100 Nasal Cannula 3 02/12/18 16:10 70 17 140/76 100 Nasal Cannula 3 02/12/18 16:00 74 16 129/61 100 Simple Mask 6 02/12/18 15:55 71 24 158/68 100 Simple Mask 6 02/12/18 15:51 97.2 70 16 176/72 100 Simple Mask 6 97.2 02/12/18 15:49 207.0 71 16 100 02/12/18 11:58 98.3 82 20 146/90 (108) 95 98.3 02/12/18 11:01 82 158/67 02/12/18 09:00 82 20 158/67 (97) 95 02/12/18 08:23 82 170/78 02/12/18 08:23 170/78 Intake and Output 02/12/18 02/13/18 19:00 07:00 Intake Total 560 ml Output Total 20 ml 1200 ml Balance 540 ml -1200 ml Intake Oral 460 ml IV Total 100 ml Output Urine Total 1200 ml Estimated Blood Loss 20 ml # Voids 1 Height (Feet): 5 Height (Inches): 6.00 Weight (Pounds): 144 Objective Cachectic. Cv RR Lungs CTA Abd SNT. BS + E No CCE. Lt. great toe gangrene + amputated + wound Vac. ANGEL GARCÍAF. Arline Dominguez MD Feb 13, 2018 08:14
[2018-02-13] MEDS: Aspirin EC 81mg tab ORAL SCH (08:16)
[2018-02-13] MEDS: Metoprolol 25mg tab ORAL SCH ×2 (08:17→21:28)
[2018-02-13] MEDS: Heparin 5000 units/ml inj SUBQ SCH ×2 (08:21→21:29)
[2018-02-13] MEDS ORDERED: Cefepime HCl 2 GM in D5W 55 ML IVPB SCH (10:00)
[2018-02-13] MEDS ORDERED: Vancomycin 1250mg/D5W 250ml IVPB SCH ×2 (10:30→20:00)
--- NOTE | 2018-02-13 12:23 | 48 Hour Post Anesthesia Eval ---
Post Anesthesia Evaluation Procedure: I and D L Foot Date of Evaluation: Feb 13, 2018 Time of Evaluation: 12:22 Blood Pressure Systolic: 158 0: 76 Pulse Rate: 68 Respiratory Rate: 20 Temperature (Fahrenheit): 97.5 O2 Sat by Pulse Oximetry: 98 Airway: patent Nausea: No Vomiting: No Pain Intensity: 2 Hydration Status: adequate Cardiopulmonary Status: stable Mental Status/LOC: patient returned to baseline Follow-up Care/Observations: n/a Post-Anesthesia Complications: none Follow-up care needed: N/A David Banks MD Feb 13, 2018 12:23
--- NOTE | 2018-02-13 14:32 | Podiatric Progress Note ---
Assessment/Plan Patient Byron Johns is a 67 year old male who was admitted on Feb 11, 2018 at 14:28 with Problems: (1) Non-healing ulcer of left foot (2) ESRD (end stage renal disease) (3) Cellulitis (4) Osteomyelitis Assessment/Plan Patient s/p L 1st met head resection doing well awaiting biopsy results. changed dressing with Betadine application to incision site, and packing. Continue IV abx for 6 weeks Patient was discussed with PCP to d/c to [place] facility for care and f/u. Subjective Allergies: Coded Allergies: No Known Allergies (Unverified , 02/11/18) Subjective Patient is post op one day s/p L 1st met head resection. patient was seen by bedside in NAD denies dialysis and wanting to go home. patient has no c/o and denies f/c/n/v or pain. Objective Exam Last 24 Hour Vital Signs Date Time Temp Pulse Resp B/P (MAP) Pulse Ox O2 Delivery O2 Flow Rate FiO2 02/13/18 12:23 207.5 68 20 98 02/13/18 11:57 98.1 89 18 160/82 (108) 95 98.1 02/13/18 09:20 158/78 (104) 02/13/18 09:04 92 173/92 02/13/18 08:25 98.1 92 18 173/92 (119) 96 98.1 02/13/18 08:17 81 158/81 02/13/18 07:35 Room Air 02/13/18 04:00 98.4 81 18 158/81 (106) 95 98.4 02/13/18 00:00 97.7 79 18 150/85 (106) 98 97.7 02/12/18 21:20 75 140/77 02/12/18 21:00 Room Air 02/12/18 20:35 99 16 Nasal Cannula 2.0 28 02/12/18 20:00 97.0 75 18 140/77 (98) 99 97.0 02/12/18 17:30 98.0 18 142/69 (93) 99 98.0 02/12/18 16:45 97.9 20 148/79 (102) 99 97.9 02/12/18 16:33 98.0 71 18 144/81 100 Nasal Cannula 3 98.0 02/12/18 16:20 69 19 139/81 100 Nasal Cannula 3 02/12/18 16:10 70 17 140/76 100 Nasal Cannula 3 02/12/18 16:00 74 16 129/61 100 Simple Mask 6 02/12/18 15:55 71 24 158/68 100 Simple Mask 6 02/12/18 15:51 97.2 70 16 176/72 100 Simple Mask 6 97.2 02/12/18 15:49 207.0 71 16 100 Microbiology Date/Time Source Procedure Growth Status 02/11/18 14:30 Blood Blood Culture - Preliminary NO GROWTH AFTER 24 HOURS Resulted 02/12/18 17:45 Foot Left Gram Stain - Final Resulted 02/12/18 17:45 Foot Left Aerobic Culture - Preliminary Resulted 02/12/18 17:45 Foot Left Anaerobic Culture - Preliminary Resulted Dermatological Dermatological Narrative strike through dressing noted dry s/p surgery. after removal of dressing the wound looks clean and cellulitis looks resolving. edema has decreased and no sign of drainage, discharge, pus or odor noted. Gilberto Corneoj DPM Feb 13, 2018 14:32
--- NOTE | 2018-02-13 14:40 | Cardiology Progress Note ---
Assessment/Plan Assessment/Plan stable from cardiac standpoint Subjective Subjective The patient is resting in bed he does not have any new cardiac complaints Objective Last 24 Hour Vital Signs Date Time Temp Pulse Resp B/P (MAP) Pulse Ox O2 Delivery O2 Flow Rate FiO2 02/13/18 12:23 207.5 68 20 98 02/13/18 11:57 98.1 89 18 160/82 (108) 95 98.1 02/13/18 09:20 158/78 (104) 02/13/18 09:04 92 173/92 02/13/18 08:25 98.1 92 18 173/92 (119) 96 98.1 02/13/18 08:17 81 158/81 02/13/18 07:35 Room Air 02/13/18 04:00 98.4 81 18 158/81 (106) 95 98.4 02/13/18 00:00 97.7 79 18 150/85 (106) 98 97.7 02/12/18 21:20 75 140/77 02/12/18 21:00 Room Air 02/12/18 20:35 99 16 Nasal Cannula 2.0 28 02/12/18 20:00 97.0 75 18 140/77 (98) 99 97.0 02/12/18 17:30 98.0 18 142/69 (93) 99 98.0 02/12/18 16:45 97.9 20 148/79 (102) 99 97.9 02/12/18 16:33 98.0 71 18 144/81 100 Nasal Cannula 3 98.0 02/12/18 16:20 69 19 139/81 100 Nasal Cannula 3 02/12/18 16:10 70 17 140/76 100 Nasal Cannula 3 02/12/18 16:00 74 16 129/61 100 Simple Mask 6 02/12/18 15:55 71 24 158/68 100 Simple Mask 6 02/12/18 15:51 97.2 70 16 176/72 100 Simple Mask 6 97.2 02/12/18 15:49 207.0 71 16 100 General Appearance: no apparent distress - chronically ill appearing EENT: PERRL/EOMI Neck: non-tender Rhythm: NSR Cardiovascular: normal peripheral pulses, normal rate Respiratory/Chest: lungs clear Abdomen: rebound Extremities: other - dressing on the left foot Intake and Output 02/12/18 02/13/18 19:00 07:00 Intake Total 560 ml Output Total 20 ml 1200 ml Balance 540 ml -1200 ml Intake Oral 460 ml IV Total 100 ml Output Urine Total 1200 ml Estimated Blood Loss 20 ml # Voids 1 Microbiology Date/Time Source Procedure Growth Status 02/11/18 14:30 Blood Blood Culture - Preliminary NO GROWTH AFTER 24 HOURS Resulted 02/11/18 14:15 Blood Blood Culture - Preliminary NO GROWTH AFTER 24 HOURS Resulted 02/12/18 17:45 Foot Left Gram Stain - Final Resulted 02/12/18 17:45 Foot Left Aerobic Culture - Preliminary Resulted 02/12/18 17:45 Foot Left Anaerobic Culture - Preliminary Resulted 02/11/18 15:52 Rectum VRE Culture Pending Resulted 02/11/18 15:52 Rectum - Preliminary Resulted Latisha Lane MD Feb 13, 2018 14:40
--- NOTE | 2018-02-13 14:44 | Cardiology Progress Note ---
Assessment/Plan Assessment/Plan stable from cardiac standpoint Subjective Subjective i reviewd pts ECG and there was no acute ischemic changes Objective Last 24 Hour Vital Signs Date Time Temp Pulse Resp B/P (MAP) Pulse Ox O2 Delivery O2 Flow Rate FiO2 02/13/18 12:23 207.5 68 20 98 02/13/18 11:57 98.1 89 18 160/82 (108) 95 98.1 02/13/18 09:20 158/78 (104) 02/13/18 09:04 92 173/92 02/13/18 08:25 98.1 92 18 173/92 (119) 96 98.1 02/13/18 08:17 81 158/81 02/13/18 07:35 Room Air 02/13/18 04:00 98.4 81 18 158/81 (106) 95 98.4 02/13/18 00:00 97.7 79 18 150/85 (106) 98 97.7 02/12/18 21:20 75 140/77 02/12/18 21:00 Room Air 02/12/18 20:35 99 16 Nasal Cannula 2.0 28 02/12/18 20:00 97.0 75 18 140/77 (98) 99 97.0 02/12/18 17:30 98.0 18 142/69 (93) 99 98.0 02/12/18 16:45 97.9 20 148/79 (102) 99 97.9 02/12/18 16:33 98.0 71 18 144/81 100 Nasal Cannula 3 98.0 02/12/18 16:20 69 19 139/81 100 Nasal Cannula 3 02/12/18 16:10 70 17 140/76 100 Nasal Cannula 3 02/12/18 16:00 74 16 129/61 100 Simple Mask 6 02/12/18 15:55 71 24 158/68 100 Simple Mask 6 02/12/18 15:51 97.2 70 16 176/72 100 Simple Mask 6 97.2 02/12/18 15:49 207.0 71 16 100 Intake and Output 02/12/18 02/13/18 19:00 07:00 Intake Total 560 ml Output Total 20 ml 1200 ml Balance 540 ml -1200 ml Intake Oral 460 ml IV Total 100 ml Output Urine Total 1200 ml Estimated Blood Loss 20 ml # Voids 1 Microbiology Date/Time Source Procedure Growth Status 02/11/18 14:30 Blood Blood Culture - Preliminary NO GROWTH AFTER 24 HOURS Resulted 02/11/18 14:15 Blood Blood Culture - Preliminary NO GROWTH AFTER 24 HOURS Resulted 02/12/18 17:45 Foot Left Gram Stain - Final Resulted 02/12/18 17:45 Foot Left Aerobic Culture - Preliminary Resulted 02/12/18 17:45 Foot Left Anaerobic Culture - Preliminary Resulted 02/11/18 15:52 Rectum VRE Culture Pending Resulted 02/11/18 15:52 Rectum - Preliminary Resulted Latisha Lane MD Feb 13, 2018 14:44
--- NOTE | 2018-02-13 14:58 | Cardiology Report ---
APPROVED REPORT EKG Measurement Heart [id number] Normal sinus rhythm Left axis deviation Septal infarct, age undetermined Abnormal ECG
[2018-02-13] MEDS: Cefepime HCl 2 GM in D5W 55 ML IVPB SCH (19:09)
[2018-02-14] VITALS: BP 127/51
[2018-02-14 04:00] VITALS: BP 118/68
[2018-02-14] MEDS: NovoLOG Insulin Flexpen SUBQ SCH ×2 (06:30→12:27)
[2018-02-14 08:00] VITALS: BP 170/81
[2018-02-14] MEDS: Cefepime HCl 2 GM in D5W 55 ML IVPB SCH (08:27)
[2018-02-14] MEDS: Metoprolol 25mg tab ORAL SCH (08:28)
[2018-02-14] MEDS: Aspirin EC 81mg tab ORAL SCH (08:28)
[2018-02-14] MEDS: Heparin 5000 units/ml inj SUBQ SCH (08:29)
--- NOTE | 2018-02-14 08:30 | Infectious Diseases Prog Note ---
Assessment/Plan Assessment/Plan 67 yo male with PMHx of DM and ESRD on HD who presented to the ED on 02/11/18 with presented with a left foot wound that has not been healing. Left great toe infection Reported OM in the past 02/12/18 - SP I and D On Vancomycin No active sepsis DM HTN, End stage renal disease (On HD) Plan: - Continue Cefepime #2 2g after HD on dialysis days - for GNR coverage - Abx End date 02-24-18 - Continue Vancomycin #3 - Abx End date 02-24-18 - If pathology report shows clean margins could consider shorter course of Abx - If D/C cultures will need to be followed up and abx adjusted accordingly - f/u Surgery Path results and Cx - Monitor CBC and Temps We will continue to follow the patient during this hospitalization. Subjective Allergies: Coded Allergies: No Known Allergies (Unverified , 02/11/18) Subjective Afebrile Pain controlled Objective Vital Signs Last 24 Hour Vital Signs Date Time Temp Pulse Resp B/P (MAP) Pulse Ox O2 Delivery O2 Flow Rate FiO2 02/14/18 08:00 97.7 77 18 170/81 (110) 96 97.7 02/14/18 04:00 98.8 80 16 118/68 (85) 100 98.8 02/14/18 00:00 97.9 81 18 127/51 (76) 100 97.9 02/13/18 21:28 87 152/88 02/13/18 21:00 Room Air 02/13/18 20:00 98.0 87 18 152/88 (109) 98 98.0 02/13/18 19:50 95 Room Air 21 02/13/18 16:00 98.7 81 18 154/94 (114) 96 98.7 02/13/18 12:23 207.5 68 20 98 02/13/18 11:57 98.1 89 18 160/82 (108) 95 98.1 02/13/18 09:20 158/78 (104) 02/13/18 09:04 92 173/92 Height (Feet): 5 Height (Inches): 6.00 Weight (Pounds): 144 Objective Gen: NAD, HEENT: NCAT, MMM, EOMI, LUNGS: CTAB, No W CARDS: RRR, S1, S2, No M/R/G ABD: Soft, NT, ND, + BS, Ext: C/C/E, Pulses 1+ B/L (DP, Rad), Left foot with clean ulcer S/P I and D, Right foot with amp of great toe NEURO: A/O x 4, Strength and Sensation Grossly intact Microbiology Date/Time Source Procedure Growth Status 02/11/18 14:30 Blood Blood Culture - Preliminary NO GROWTH AFTER 48 HOURS Resulted 02/11/18 14:15 Blood Blood Culture - Preliminary NO GROWTH AFTER 48 HOURS Resulted 02/11/18 15:52 Nasal Nares MRSA Culture - Final NO METHICILLIN RESISTANT STAPH AUREUS... Complete 02/12/18 17:45 Foot Left Gram Stain - Final Resulted 02/12/18 17:45 Foot Left Aerobic Culture - Preliminary Resulted 02/12/18 17:45 Foot Left Anaerobic Culture - Preliminary Resulted 02/11/18 15:52 Rectum VRE Culture - Final NO VANCOMYCIN RESISTANT ENTEROCOCCUS ... Complete 02/11/18 15:52 Rectum - Final NO CARBAPENEM-RESISTANT ENTEROBACTERI... Complete Current Medications Medications (Trade) Dose Ordered Sig/Live Route PRN Reason Start Time Stop Time Status Last Admin Dose Admin Acetaminophen (Tylenol) 650 mg Q4H PRN ORAL T>100.5 02/11/18 15:00 03/13/18 14:59 Albuterol/ Ipratropium (Albuterol/ Ipratropium) 3 ml Q6H PRN HHN dyspnea 02/11/18 15:00 02/16/18 14:59 Amlodipine Besylate (Norvasc) 5 mg DAILY ORAL 02/12/18 09:00 03/14/18 08:59 02/13/18 09:04 Aspirin (Ecotrin) 81 mg DAILY ORAL 02/12/18 18:30 03/14/18 18:29 02/13/18 08:16 Cefepime HCl 2 gm/ Dextrose 55 ml @ 110 mls/hr DAILY IVPB 02/13/18 15:00 02/20/18 09:59 02/13/18 19:09 Clonidine HCl (Catapres Tab) 0.1 mg Q4H PRN ORAL SBP > 160mmHg 02/11/18 15:00 03/13/18 14:59 02/12/18 08:23 Dextrose (Dextrose 50%) 25 ml PRN IV Hypoglycemia 02/11/18 15:15 03/13/18 15:14 Dextrose (Dextrose 50%) 50 ml PRN IV hypoglycemia 02/11/18 15:15 03/13/18 15:14 Heparin Sodium (Porcine) (Heparin 5000 units/ml) 5,000 units EVERY 12 HOURS SUBQ 02/11/18 21:00 03/13/18 20:59 02/13/18 21:29 Heparin Sodium (Porcine) (Heparin Sod 1000 units/ml 10ml) 2,000 unit ONCE PRN IV FOR HD USE ONLY 02/12/18 08:00 02/14/18 23:59 Insulin Aspart (NovoLOG) BEFORE MEALS AND HS SUBQ 02/11/18 21:00 03/13/18 20:59 02/13/18 21:29 Metoprolol Tartrate (Lopressor) 25 mg Q12HR ORAL 02/12/18 11:00 03/14/18 10:59 02/13/18 21:28 Morphine Sulfate (Morphine Sulfate) 1 mg Q4H PRN IVP PAIN 4-10 02/11/18 15:00 02/18/18 14:59 Ondansetron HCl (Zofran) 4 mg Q6H PRN IVP Nausea & Vomiting 02/11/18 15:00 03/13/18 14:59 Polyethylene Glycol (Miralax) 17 gm HSPRN PRN ORAL Constipation 02/11/18 21:00 03/13/18 20:59 Sodium Chloride 1,000 ml @ 500 mls/hr Q2H PRN IVLG sbp<90 during hd 02/12/18 08:00 02/14/18 23:59 Vancomycin HCl (Vanco rx to dose) 1 ea DAILY PRN MISC Per rx protocol 02/13/18 09:15 03/15/18 09:14 Zolpidem Tartrate (Ambien) 5 mg HSPRN PRN ORAL Insomnia 02/11/18 21:00 02/18/18 20:59 Gilberto Valverde MD Feb 14, 2018 08:30
--- NOTE | 2018-02-14 09:57 | Pulmonology Progress Note ---
Assessment/Plan Assessment/Plan ASSESSMENT osteomyelitis left 1st metatarsal head Left foot non-healing ulcer s/p resection of 1st metatarsal head, incision and drainage, bone biopsy on End-stage renal disease on hemodialysis Diabetes mellitus Aspiration risk Hypertension Anemia off chronic renal disease History of CVA 5 History of TAVR PLAN OF CARE Med Surg floor s/p surgery abx, ID follows blood cx negative, wound cx preliminary negative waiting for pathology ID follows hemodialysis per nephro with close monitoring of volumes, renal parameters and lytes strict aspiration precaution O2 prn to keep pulse ox above 92%, pulm toilet prn DVT prophylaxis pain management BP management with CCB and BB bowel regimen supportive care monitor H&H with goal to keep Hgb above 7 anemia workup consistent with anemia of chronic disease wound care per surgeon recs dc plan with ID recommendations for further abx management case discussed and evaluated by supervising physician Subjective Allergies: Coded Allergies: No Known Allergies (Unverified , 02/11/18) Subjective no fever, denies pain Objective Last 24 Hour Vital Signs Date Time Temp Pulse Resp B/P (MAP) Pulse Ox O2 Delivery O2 Flow Rate FiO2 02/14/18 08:28 77 170/81 02/14/18 08:28 77 170/81 02/14/18 08:00 97.7 77 18 170/81 (110) 96 97.7 02/14/18 04:00 98.8 80 16 118/68 (85) 100 98.8 02/14/18 00:00 97.9 81 18 127/51 (76) 100 97.9 02/13/18 21:28 87 152/88 02/13/18 21:00 Room Air 02/13/18 20:00 98.0 87 18 152/88 (109) 98 98.0 02/13/18 19:50 95 Room Air 21 02/13/18 16:00 98.7 81 18 154/94 (114) 96 98.7 02/13/18 12:23 207.5 68 20 98 02/13/18 11:57 98.1 89 18 160/82 (108) 95 98.1 Intake and Output 02/13/18 02/14/18 19:00 07:00 Intake Total 600 ml Output Total 300 ml Balance 600 ml -300 ml Other 600 ml Output Urine Total 300 ml # Voids 2 General Appearance: no acute distress HEENT: normocephalic, atraumatic, anicteric, mucous membranes moist Respiratory/Chest: lungs clear, no accessory muscle use Cardiovascular: normal peripheral pulses, normal rate Abdomen: soft, non tender Extremities: no edema, pedal pulses normal Skin: other - left leg with dressing C/D/I Neurologic/Psychiatric: alert, oriented x 3, responsive Musculoskeletal: normal muscle bulk Microbiology Date/Time Source Procedure Growth Status 02/11/18 14:30 Blood Blood Culture - Preliminary NO GROWTH AFTER 48 HOURS Resulted 02/11/18 14:15 Blood Blood Culture - Preliminary NO GROWTH AFTER 48 HOURS Resulted 02/11/18 15:52 Nasal Nares MRSA Culture - Final NO METHICILLIN RESISTANT STAPH AUREUS... Complete 02/12/18 17:45 Foot Left Gram Stain - Final Resulted 02/12/18 17:45 Aerobic Culture - Preliminary Staphylococcus Aureus Diphtheroids Resulted 02/12/18 17:45 Foot Left Anaerobic Culture - Preliminary Resulted 02/11/18 15:52 Rectum VRE Culture - Final NO VANCOMYCIN RESISTANT ENTEROCOCCUS ... Complete 02/11/18 15:52 Rectum - Final NO CARBAPENEM-RESISTANT ENTEROBACTERI... Complete Current Medications Medications (Trade) Dose Ordered Sig/Live Route PRN Reason Start Time Stop Time Status Last Admin Dose Admin Acetaminophen (Tylenol) 650 mg Q4H PRN ORAL T>100.5 02/11/18 15:00 03/13/18 14:59 Albuterol/ Ipratropium (Albuterol/ Ipratropium) 3 ml Q6H PRN HHN dyspnea 02/11/18 15:00 02/16/18 14:59 Amlodipine Besylate (Norvasc) 5 mg DAILY ORAL 02/12/18 09:00 03/14/18 08:59 02/14/18 08:28 Aspirin (Ecotrin) 81 mg DAILY ORAL 02/12/18 18:30 03/14/18 18:29 02/14/18 08:28 Cefepime HCl 2 gm/ Dextrose 55 ml @ 110 mls/hr DAILY IVPB 02/13/18 15:00 02/20/18 09:59 02/14/18 08:27 Clonidine HCl (Catapres Tab) 0.1 mg Q4H PRN ORAL SBP > 160mmHg 02/11/18 15:00 03/13/18 14:59 02/12/18 08:23 Dextrose (Dextrose 50%) 25 ml PRN IV Hypoglycemia 02/11/18 15:15 03/13/18 15:14 Dextrose (Dextrose 50%) 50 ml PRN IV hypoglycemia 02/11/18 15:15 03/13/18 15:14 Heparin Sodium (Porcine) (Heparin 5000 units/ml) 5,000 units EVERY 12 HOURS SUBQ 02/11/18 21:00 03/13/18 20:59 02/14/18 08:29 Heparin Sodium (Porcine) (Heparin Sod 1000 units/ml 10ml) 2,000 unit ONCE PRN IV FOR HD USE ONLY 02/12/18 08:00 02/14/18 23:59 Insulin Aspart (NovoLOG) BEFORE MEALS AND HS SUBQ 02/11/18 21:00 03/13/18 20:59 02/13/18 21:29 Metoprolol Tartrate (Lopressor) 25 mg Q12HR ORAL 02/12/18 11:00 03/14/18 10:59 02/14/18 08:28 Morphine Sulfate (Morphine Sulfate) 1 mg Q4H PRN IVP PAIN 4-10 02/11/18 15:00 02/18/18 14:59 Ondansetron HCl (Zofran) 4 mg Q6H PRN IVP Nausea & Vomiting 02/11/18 15:00 03/13/18 14:59 Polyethylene Glycol (Miralax) 17 gm HSPRN PRN ORAL Constipation 02/11/18 21:00 03/13/18 20:59 Sodium Chloride 1,000 ml @ 500 mls/hr Q2H PRN IVLG sbp<90 during hd 02/12/18 08:00 02/14/18 23:59 Vancomycin HCl (Vanco rx to dose) 1 ea DAILY PRN MISC Per rx protocol 02/13/18 09:15 03/15/18 09:14 Zolpidem Tartrate (Ambien) 5 mg HSPRN PRN ORAL Insomnia 02/11/18 21:00 02/18/18 20:59 Elena Conti LABORER [employer] Feb 14, 2018 09:57
--- NOTE | 2018-02-14 11:36 | Nephrology Progress Note ---
Assessment/Plan Plan Lt. Great toe bed osteo - IV Abx. Get ID consult. For Podiatry surgery yesterday. ESRD - HD MWF. Aspiration precautions!!! patient with h/o aspiration. AODM - under control. s/p TAVR!! Cardiology following. s/p CVA x 5!! DC to ECF on Vanco only! DW ID Subjective Subjective No new c/o. Case discussed @ length with Dr. Golden - pt's PMD and Special Events Coordinator and Dr. Cornejo.. Post Lt great toe metarsal amputation. Objective Objective Last 24 Hour Vital Signs Date Time Temp Pulse Resp B/P (MAP) Pulse Ox O2 Delivery O2 Flow Rate FiO2 02/14/18 08:28 77 170/81 02/14/18 08:28 77 170/81 02/14/18 08:00 97.7 77 18 170/81 (110) 96 97.7 02/14/18 04:00 98.8 80 16 118/68 (85) 100 98.8 02/14/18 00:00 97.9 81 18 127/51 (76) 100 97.9 02/13/18 21:28 87 152/88 02/13/18 21:00 Room Air 02/13/18 20:00 98.0 87 18 152/88 (109) 98 98.0 02/13/18 19:50 95 Room Air 21 02/13/18 16:00 98.7 81 18 154/94 (114) 96 98.7 02/13/18 12:23 207.5 68 20 98 02/13/18 11:57 98.1 89 18 160/82 (108) 95 98.1 Intake and Output 02/13/18 02/14/18 19:00 07:00 Intake Total 600 ml Output Total 300 ml Balance 600 ml -300 ml Other 600 ml Output Urine Total 300 ml # Voids 2 Height (Feet): 5 Height (Inches): 6.00 Weight (Pounds): 144 Objective Cachectic. Cv RR Lungs CTA Abd SNT. BS + E No CCE. Lt. great toe gangrene + amputated + wound Vac. ANGEL AVF. Arline Dominguez MD Feb 14, 2018 11:36
[2018-02-14] MEDS ORDERED: NORVASC5 MG ORAL (11:46)
[2018-02-14] MEDS ORDERED: ASPIRIN EC81 MG ORAL (11:46)
[2018-02-14] MEDS ORDERED: D50w IV (11:46)
[2018-02-14] MEDS ORDERED: Vanco pharmacy to dose MISC (11:46)
[2018-02-14] MEDS ORDERED: MIRALAX17 GM ORAL (11:46)
[2018-02-14] MEDS ORDERED: NOVOLOG100 UNITS1 SUBQ (11:46)
[2018-02-14] MEDS ORDERED: DUONEB 0.5-3(2.53 ML HHN (11:46)
[2018-02-14] MEDS ORDERED: HEPARIN SO5000 UNIT2 SUBQ (11:46)
[2018-02-14] MEDS ORDERED: ACETAMINOPHEN325 M1 ORAL (11:46)
[2018-02-14] MEDS ORDERED: LOPRESSOR25 M1 ORAL (11:46)
[2018-02-14 12:51] VITALS: BP 116/53
[2018-02-14] MEDS ORDERED: NS 500ML ONE (13:02)
[2018-02-14] MEDS ORDERED: NS 275ml ONE (13:02)
[2018-02-14] MEDS ORDERED: Tubing IV Secondary IV ONE (13:02)
[2018-02-14 16:05] VITALS: BP 166/91
--- NOTE | 2018-02-16 07:46 | Discharge Summary ---
Discharge Summary Discharge Summary _ DATE OF ADMISSION: 02/11/2018 DATE OF DISCHARGE: 02/14/2018 REASON FOR ADMISSION: 67 years old male with history of diabetes, hypertension, end-stage renal disease, on hemodialysis, presented to emergency room for evaluation for left foot infection. Patient was referred from wound care clinic at [facility]. Per wound care clinic , patient was treated for osteomyelitis, however wound on the left foot was not healing. Patient had wound for several months already. Patient denied pain, no fevers no chills. Wound vacuum was noted on the left food. Vital signs were stable. Laboratory workup revealed no leukocytosis, hemoglobin 10.9, hematocrit 33.5. BUN 34 creatinine 3.2 ,consistent with known history of end-stage renal disease. Glucose 286. Urinalysis +4 protein , +3 glucose , no evidence of UTI. Lactic acid 1.7. Troponin negative. EKG revealed normal sinus rhythm, no acute ischemic changes. Chest x-ray revealed no acute cardiopulmonary pathology. Antibiotics started in emergency department . Patient was admitted for further management with diagnoses of osteomyelitis, nonhealing left foot ulcer, end-stage renal disease. CONSULTANTS: materials inspector Dr. Lane pulmonary Dr. Hector ID specialist Dr. Gabriel thread inspector [facility]: Patient admitted. Patient started on IV antibiotics. Patient subsequently undergone on 02/12 resection of left first metatarsal head, bone biopsy, incision and drainage. Inclusion Intern closely followed . Wound care provided as per thread inspector recommendations. IV antibiotics to be continued for 6 weeks. Biopsy results still pending. Blood culture were negative. Wound culture revealed MRSA. ID specialist closely followed. Antibiotic to be continued as per infectious disease recommendations. Infectious disease specialist commented that if pathology report still show clean margin, may consider shorten course of antibiotics. Hemodialysis provided as per nuclear weapons custodian with close monitoring of volumes, renal parameters and electrolytes. Electrolytes corrected as needed. Supplemental oxygen provided as needed to keep pulse oximetry above 92%. Pulmonary toilet was on standby as needed. DVT prophylaxis provided. Strict aspiration precautions maintained. Pain management was addressed, and pain was controlled. Blood pressure was managed with calcium channel angel and beta angel. Hemoglobin and hematocrit were closely monitored with goal to keep hemoglobin above 7. Anemia workup was consistent with anemia of chronic disease. Blood sugar was managed with sliding scale of insulin. Hemoglobin A1c 8.7, not at goal. Patient needs close optimization of anti-glycemic regimen as outpatient. Patient status post TAVR. Digital Editor followed. Antiplatelet therapy continue with aspirin. Lipid panel was stable. TSH was within normal limits. Per materials inspector patient was stable from cardiology standpoint , no cardiac complaints. Transfer was arranged to detention facility for IV antibiotics to complete the course. FINAL DIAGNOSES: Osteomyelitis left first metatarsal head Left foot nonhealing ulcer Status post resection of first metatarsal head, incision and drainage, bone biopsy on 02/12 End-stage renal disease, on hemodialysis Diabetes mellitus Hypertension Anemia of chronic renal disease Aspiration risk History of multiple CVA History of TAVR DISCHARGE MEDICATIONS: See Medication Reconciliation list. DISCHARGE INSTRUCTIONS: Patient was discharged to the detention facility [facility] for IV antibiotics. Follow up with medical doctor at the facility. Elena Conti NP Feb 16, 2018 07:46
== END 2018-02-14 17:00 | DRG 503 ==
LOC: EMR 14:20 → 4E 14:28 → EDBEDREQ 16:30
PROC: 0QBP0ZZ Excision of Left Metatarsal, Open Approach (ICD-10-PCS; principal; 2018-02-12 10:30)
PROC: 5A1D70Z Performance of Urinary Filtration, Intermittent, Less than 6 Hours Per Day (ICD-10-PCS; 2018-02-13)
DX: M86.8X7 Other osteomyelitis, ankle and foot (principal); N18.6 End stage renal disease; L03.90 Cellulitis, unspecified; T87.44 Infection of amputation stump, left lower extremity; L97.529 Non-pressure chronic ulcer of other part of left foot with unspecified severity; Y83.5 Amputation of limb(s) as the cause of abnormal reaction of the patient, or of later complication, without mention of misadventure at the time of the procedure; Z99.2 Dependence on renal dialysis; E11.9 Type 2 diabetes mellitus without complications; D63.1 Anemia in chronic kidney disease; Z86.73 Personal history of transient ischemic attack (TIA), and cerebral infarction without residual deficits; Z95.4 Presence of other heart-valve replacement; Z89.412 Acquired absence of left great toe
CPT/HCPCS: 36415; 71045; 80053; 80061; 81003; 82607; 82728; 82746; 82962; 83036; 83540; 83550; 83605; 83735; 83880; 84100; 84443; 84484; 84550; 85025; 86140; 87040; 87070; 87075; 87081; 87181; 87205; 93005; 93306; 94003; 94150; 94664; 94760; J1815; J2250

== ENCOUNTER 2018-02-12 08:00 | Outpatient (CLI) | payer MEDICARE, OTHER ==
[2018-02-12] MEDS ORDERED: NeoSporin Gu Irrig 1ml Amp IRRIG ONE (14:09)
[2018-02-12] MEDS ORDERED: Bacitracin 50000 Units Vial ONE (14:09)
--- NOTE | 2018-02-13 15:07 | Cardiology Report ---
APPROVED REPORT EKG Measurement Heart [id number] NM [id number] Normal sinus rhythm Moderate voltage criteria for LVH, may be normal variant Inferior infarct, age undetermined Abnormal ECG
== END 2018-02-12 10:00 | disposition home or self-care (01) ==
LOC: RAD 08:00 → EDSTATUS 10:30
DX: Z01.810 Encounter for preprocedural cardiovascular examination (principal); Z89.412 Acquired absence of left great toe
CPT/HCPCS: 93005